=== PATIENT | female | born 1940 | race Caucasian/White ===

== ENCOUNTER 2017-03-14 12:01 | Emergency (ER) | payer MEDICARE ==
--- NOTE | 2017-03-14 12:21 | ED Physician Chart ---
ED Chief Complaint/HPI - Patient Information Chief Complaint:: PAIN IN THE RT PROXIMAL THICH X 1 DAY History of Present Illness:: PAIN IN THE RT PROXIMAL THICH X 1 DAY. PRIOR TO THE PAIN THE PT NOTED A HARDENED VEIN IN THE AREA. THIS AM THE SKIN IN THE AREA BECAME AMNA AND WARM. THE PAIN IS A BURNING WITH A SEVERITY OF 8/10. THERE WAS NO HISTORY OF TRAUMA TO THE AND SHE HAS NEVER EXPERIENCED SIMILAR PAIN IN THE PAST. SHE HAS NO PRIOR HISTORY OF DVT OR PE. SHE HAS NO HX OF RECENT SURGERY OR CANCER. NO HISTORY OF PROLONGED IMMOBILITY OR SWELLING IN THE RT LEG OR FOOT. NO FEVER OR CHILLS OR DIAPHORESIS. 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 Musculoskeletal: No bone or joint pain, No back pain, Muscle pain (IN THE RT PROXIMAL THIGH) Endocrine: No polyuria, No polydipsia Psychiatric: No prior psych history, No anxiety, No suicidal ideation Hematopoietic: No bruising, No lymphadenopathy Allergic/Immuno: No urticaria, No angioedema Neurological: No syncope, No weakness, No paresthesia, No headache, No seizure, No dizziness, No confusion ED Past Medical History - Past Medical History Past Medical History: HTN, DM (DM IS INSULIN DEPENDENT NO HEART DISEASE, CANCER OR COPD ) Social History: Non Smoker, No Alcohol, No Drug Use Surgical History: None Psychiatricy History: None Family Medical History - Family Member Mother Living Status: ED Physical Exam - Physical Examination General/Constitutional: Awake, Well-developed, well-nourished, Alert Other Gen/Cons comments:: MILD TO MODERATE DISTRESS FROM COMPLAINED OF THIGH PAIN. Head: Atraumatic Eyes: Lids, conjuctiva normal, PERRL, EOMI Skin: No ecchymosis, No lymphadenopathy Other Skin comments:: REDNESS AND WARMTH IN RT PROXIMAL INNER THIGH OF APPROXIMATELY 5 X 12 CM'S. ENMT: External ears, nose nl, Nasal exam nl, Oropharynx nl Neck: Nontender, No JVD, No nuchal rigidity, No mass, No stridor Respiratory: Nl effort/Exclusion, Clear to Auscultation, No Wheeze/Rhonchi/Rales Cardio Vascular: RRR, No murmur, gallop, rubs, NL S1 S2 (GOOD PULSES IN ALL 4 EXTREMITIES.) GI: No tenderness/rebounding/guarding, No organomegaly, Nondistended, No mass/ bruits : No CVA tenderness Extremities: No edema Other Extremities comments:: TENDERNESS, WARMTH AND ERYTHEMA. THERE WAS NO PERIPHERAL EDEMA AND NO CALF TENDERNESS IN RT LEG. GOOD CAPILLARY REFILL IN BOTH FEET. Neuro/Psych: Alert/oriented, Normal sensory exam, Normal motor strength, Judgement/insight normal, Mood normal, No focal deficits Misc: Normal back ED Labs/Radiology/EKG Results - Lab Results Results: Laboratory Tests 03/14/17 03/14/17 03/14/17 14:21 14:21 14:21 WBC 10.9 H RBC 4.60 Hgb 14.1 Hct 42.5 MCV 92.5 MCH 30.7 MCHC Differential 33.2 RDW 13.0 Plt Count 262 MPV 8.6 Neutrophils % 71.9 Lymphocytes % 21.2 Monocytes % 2.8 Eosinophils % 3.3 Basophils % 0.8 Sodium 134 L Potassium 4.2 Chloride 103 Carbon Dioxide 25.6 Anion Gap 9.6 BUN 16 Creatinine 0.7 Est GFR ( Amer) TNP Est GFR (Non-Af Amer) TNP BUN/Creatinine Ratio 22.9 Glucose 220 H Hemoglobin A1c % Whole Bld Lactic Acid 1.63 Calcium 9.6 03/14/17 14:21 WBC RBC Hgb Hct MCV MCH MCHC Differential RDW Plt Count MPV Neutrophils % Lymphocytes % Monocytes % Eosinophils % Basophils % Sodium Potassium Chloride Carbon Dioxide Anion Gap BUN Creatinine Est GFR ( Amer) Est GFR (Non-Af Amer) BUN/Creatinine Ratio Glucose Hemoglobin A1c % 9.8 H Whole Bld Lactic Acid Calcium LAB INTERPRETATION: CBC WITH MINIMAL ELEVATION OF WHITE COUNT COULD REFLECT PAIN. NO ANEMIA AND PLATELETS NORMAL. METABOLIC STUDIES SHOW MINIMAL HYPONATREMIA OF NO CLINICAL IMPORTANCE. MODERATE ELEVATION OF SERUM GLUCOSE. NORMAL RENAL FUNCTION. LACTIC ACID WITHIN NORMAL PARAMETERS. ULTRASOUND OF THE RIGHT LOWER EXTREMITY WAS NEGATIVE FOR DVT. ED Assessment - Assessment General Assessment: CASE SUMMARY: THIS 76 YEAR OLD FEMALE PRESENTS WITH PAIN IN THE PROXIMAL RT THIGH WITH ASSOCIATED WARMTH, TENDERNESS AND ERYTHEMA. MY INITIAL CONCERN WAS FOR DVT BUT THE ULTRASOUND OF RT LOWER EXT WAS NEG FOR DVT. WITH THAT INFO, WORK UP FOR CELLULITIS AND SEPSIS WAS BEGUN. BLOOD CULTURES WERE OBTAINED AND THEN ANTIBIOTICS WERE STARTED, 2 GRAMS CEFTRIAXONE AND 1 GRAM VANCOMYCIN. PT'S VITAL SIGNS WERE STABLE. THE LACTIC ACID WAS WITHIN NORMAL PARAMETERS I DISCUSSED THE THE CASE WITH THE PT'S PMD, . AND HE FELT THAT AN OUT PATIENT TRIAL OF PO ANTIBIOTICS WAS ACCEPTABLE. PT WAS DISCHARGED WITH RX FOR CEPHALEXIN 500 MG TO BE TAKEN BID FOR 10 DAYS. THE BOARDER OF THE ERYTHEMA WAS OUTLINED WITH A SHARPIE MARKER. SHE WAS INSTRUCTED TO RETURN TO THE ER OVER THE WEEKEND IF SHE STARTED RUNNING A FEVER, HAS ANY INCREASE PAIN IN HER LEG,OR IF THE REDNESS EXTENDS BEYOND THE MARKED AREA. IF THIS DOESN'T HAPPEN, SHE NEEDS TO SEE ON THURSDAY. HE WILL BE IN HIS OFFICE ON THURSDAY EVEN THOUGH IT IS A HOLIDAY. DISCHARGED IN STABLE CONDITION. MDM DDX FOR PAIN, REDNESS, AND WARMTH IN THE RT LOWER EXTREMITY: NOT DVT BASED ON THE NEGATIVE ULTRA SOUND AND LOW RISK FOR DVT. NOT NECROTIZING FASHCIITIS BASED ON HISTORY AND EXAM. ED Septic Shock - . Is Septic Shock (SBP<90, OR Lactate>4 mmol\L) present?: No ED Reassessment (Disposition) - Reassessment Reassessment Condition:: Improved - Diagnosis Diagnosis:: CELLULITIS OF THE RT PROXIMAL RIGHT LOWER EXTREMITY TAKE THE CEPHALEXIN 4 TIMES A DAY FOR 10 DAYS. USE THE NORCO FOR SEVERE PAIN. DON'T MIX THE NORCO WITH ALCOHOL AND DON'T TAKE IT WITHIN 6 HOURS OF DRIVING OR ACTIVITIES REQUIRING ALERTNESS. RETURN FO THE ER IF YOU DEVELOP FEVER, INCREASED PAIN, OR IF THERE IS SPREAD OF THE REDNESS BEYOND THE OUTLINED AREA. FOLLOW UP WITH DR. WARREN ON THURSDAY. ED Discharge Plan - Patient Disposition Admit/Discharge/Transfer: PT DISCHARGED HOME Condition at Disposition: Stable Prescriptions: Cephalexin [Cephalexin*] 500 mg PO QID #40 tab Hydrocodone/Acetaminophen [[place] 7.5-325 Tablet] 1 tab PO Q6H PRN #10 tab PRN Reason: Pain (Severe) Instructions: Cellulitis, [id number]
[2017-03-14] MEDS ORDERED: Hydrocodone/APAP 10 mg/325 mg Tab PO STA (12:43)
[2017-03-14] MEDS ORDERED: Hydrocodone/APAP 10 mg/325 mg Tab ONE (12:51)
[2017-03-14 14:29] LABS: % BASOPHILS 0.8 % (0.0-2.0); % EOSINOPHILS 3.3 % (0.0-5.0); % LYMPHOCYTES 21.2 % (20.0-50.0); % MONOCYTES 2.8 % (2.0-10.0); % NEUTROPHILS 71.9 % (40.0-80.0); BASOPHILE ABSOLUTE 0.1 Th/cumm (0-0.2); EOSINOPHILE ABSOLUTE 0.4 Th/cmm (0.1-0.4); HEMATOCRIT 42.5 % (41.0-60); HEMOGLOBIN 14.1 gm/dL (12-16); LYMPHOCYTE ABSOLUTE 2.3 Th/cmm (1.5-3.0); MEAN CELL VOLUME 92.5 fl (81-100); MEAN CORPUSCULAR HEMOGLOBIN 30.7 pg (27.0-31.0); MEAN CORPUSCULAR HGB CONC 33.2 pg (28.0-36.0); MEAN PLATELET VOLUME 8.6 fl; MONOCYTE ABSOLUTE 0.3 Th/cmm (0.3-1.0); NEUTROPHILE ABSOLUTE 7.8 Th/cmm (1.8-8.0); PLATELET COUNT 262 Th/cmm (150-400); WHITE BLOOD COUNT 10.9 Th/cmm (4.8-10.8)
[2017-03-14 14:45] LABS: ANION GAP 9.6 (7.0-16.0); BUN - UREA NITROGEN 16 mg/dL (7-25); CALCIUM SERUM 9.6 mg/dL (8.6-10.3); CARBON DIOXIDE 25.6 mEq/L (21.0-31.0); CHLORIDE 103 mEq/L (98-107); CREATININE - SERUM 0.7 mg/dL (0.6-1.2); GLUCOSE 220 mg/dL (70-105); POTASSIUM SERUM 4.2 mEq/L (3.5-5.1); SODIUM SERUM 134 mEq/L (136-145)
--- NOTE | 2017-03-15 09:54 | Diagnostic Imaging Report ---
Left lower extremity Doppler venous ultrasound exam HISTORY: Pain/swelling Sonographic sector images were obtained through the deep venous systems of the left leg. Associated Doppler data was obtained. The exam demonstrates patency of the common femoral, superficial femoral, popliteal, and posterior tibial veins. Specifically, no thrombus is seen. There are normal compressibility and augmentation responses. IMPRESSION: Negative exam for deep vein thrombophlebitis.
[2017-03-15 11:24] LABS: A1C % 9.8 % (4.0-6.0)
== END 2017-03-14 15:40 | disposition home or self-care (01) ==
LOC: ER 12:01
DX: L03.115 Cellulitis of right lower limb (principal); I10 Essential (primary) hypertension; E11.9 Type 2 diabetes mellitus without complications; Z91.041 Radiographic dye allergy status
CPT/HCPCS: 99285; 96365; 93971; 36415; 83605; 85025; 83036; 80048; 87040 ×2; J0690

== ENCOUNTER 2017-07-28 16:14 | Inpatient (IN) | payer MEDICARE ==
--- NOTE | 2017-07-28 16:43 | ED Physician Chart ---
ED Chief Complaint/HPI - Patient Information Date Seen:: 07/28/17 Time Seen:: 16:20 Chief Complaint:: Abscess History of Present Illness:: onset x 3 days of redness and swelling at the right brett-rectal area; no report of trauma, H/As, S/T, neck pain, C/P, SOB, Abd. Pain, A/N/V/D/C, fever, chills, or urinary s/s; pt's last tetanus shot: < 5 years; UTD Allergies:: Allergies Allergy/AdvReac Type Severity Reaction Status Date / Time iodine Allergy Verified 03/14/17 12:24 Vitals:: Vital Signs - 8 hr 07/28/17 16:19 Temp 98.6 F HR 80 RR 18 BP 142/66 O2 Sat % 95 Historian:: Patient Review:: Nurse's Note Reviewed ED Review of Systems - Review of Systems General/Constitutional: No fever, No chills, No weight loss, No weakness, No diaphoresis, No edema, No loss of appetite Skin: Skin lesions, Rash, No bruising Head: No headache, No light-headedness Eyes: No loss of vision, No pain, No diplopia ENT: No earache, No nasal drainage, No sore throat, No tinnitus Neck: No neck pain, No swelling, No thyromegaly, No stiffness, No mass noted Cardio Vascular: No chest pain, No palpitations, No PND, No orthopnea, No edema Pulmonary: No SOB, No cough, No sputum, No wheezing GI: No nausea, No vomiting, No diarrhea, No pain, No melena, No hematochezia, No constipation, No hematemesis G/U: No dysuria, No frequency, No hematuria, No nacturia 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, No abnormal vaginal bleed, No contraction Musculoskeletal: No bone or joint pain, No back pain, No muscle pain Endocrine: No polyuria, No polydipsia Psychiatric: No prior psych history, No depression, No anxiety, No suicidal ideation, No homicidal ideation, No auditory hallucination, No visual hallucination Hematopoietic: No bruising, No lymphadenopathy Allergic/Immuno: No urticaria, No angioedema Neurological: No syncope, No focal symptoms, No weakness, No paresthesia, No headache, No seizure, No dizziness, No confusion, No vertigo ED Past Medical History - Past Medical History Obtainable: Yes Past Medical History: HTN, DM, Dyslipidemia, PUD/GERD Family History: Diabetes Melitus, HTN Social History: Non Smoker, No Alcohol, No Drug Use, Surgical History: Cholecystectomy, Hernia Psychiatricy History: None Medication: Reviewed Family Medical History - Family Member Mother Living Status: ED Physical Exam - Physical Examination General/Constitutional: Awake, Well-developed, well-nourished, Alert, No distress, GCS 15, Non-toxic appearing, Ambulatory Head: Atraumatic Eyes: Lids, conjuctiva normal, PERRL, EOMI Skin: Nl inspection, No rash, No skin lesions, No ecchymosis, Well hydrated, No lymphadenopathy Other Skin comments:: + Right Brett-Rectal Abscess ENMT: External ears, nose nl, TM canals nl, Nasal exam nl, Lips, teeth, gums nl , Oropharynx nl, Tonsils nl Neck: Nontender, Full ROM w/o pain, No JVD, No nuchal rigidity, No bruit, No mass, No stridor Respiratory: Nl effort/Exclusion, Clear to Auscultation, No Wheeze/Rhonchi/Rales Cardio Vascular: RRR, No murmur, gallop, rubs, NL S1 S2, Carotid/Femoral/Distal pulses equal bilaterally GI: No tenderness/rebounding/guarding, No organomegaly, No hernia, Normal BS's, Nondistended, No mass/bruits, No McBurney tenderness Other GI comments:: no pulsatile masses; + Right Brett-rectal abscess : No CVA tenderness Extremities: No tenderness or effusion, Full ROM, normal strength in all extremities, No edema, Normal digits & nails Neuro/Psych: Alert/oriented, DTR's symmetric, Normal sensory exam, Normal motor strength, Judgement/insight normal, Mood normal, Normal gait, No focal deficits Misc: Normal back, No paraspinal tenderness ED Labs/Radiology/EKG Results - EKG Interpretations EKG Time:: 16:48 Rate & Rhythm: 78; NSR Comments:: non-specific st-t changes ED Septic Shock - . Is Septic Shock (SBP<90, OR Lactate>4 mmol\L) present?: No - <6hrs of presentation: Vital Signs: Vital Signs - 8 hr 07/28/17 16:19 Temp 98.6 F HR 80 RR 18 BP 142/66 O2 Sat % 95 ED Reassessment (Disposition) - Reassessment Reassessment Condition:: Improved - Diagnosis Diagnosis:: Brett-Rectal Abscess; Cellulitis; Sepsis - Aftercare/Follow up Instructions Aftercare/Follow-Up Instructions:: Counseled pt regarding lab results/diagnosis & need follow up, Counseled pt & family regarding lab results/diagnosis & need follow up - Patient Disposition Discharge/Transfer:: Acute Care w/in this hosp Accepting Physician:: Dr. Butler Time Called:: 1700 Time Responded:: 17:00 Admitted to:: Med/Surg Spoke to:: Dr. Butler Admitting Medical Physician:: Dr. Butler Condition at Disposition:: Stable, Improved
[2017-07-28] MEDS ORDERED: cefTRIAXone 1 GM in Sodium Chloride 0.9% 50 ML IV ONE (16:46)
[2017-07-28 17:07] LABS: % BASOPHILS 0.7 % (0.0-2.0); % EOSINOPHILS 6.1 % (0.0-5.0); % MONOCYTES 6.4 % (2.0-10.0); % NEUTROPHILS 67.8 % (40.0-80.0); BASOPHILE ABSOLUTE 0.1 Th/cumm (0-0.2); EOSINOPHILE ABSOLUTE 0.6 Th/cmm (0.1-0.4); HEMATOCRIT 33.7 % (41.0-60); HEMOGLOBIN 11.3 gm/dL (12-16); LYMPHOCYTE ABSOLUTE 1.8 Th/cmm (1.5-3.0); MEAN CELL VOLUME 91.5 fl (81-100); MEAN CORPUSCULAR HEMOGLOBIN 30.8 pg (27.0-31.0); MEAN CORPUSCULAR HGB CONC 33.7 pg (28.0-36.0); MEAN PLATELET VOLUME 8.4 fl; MONOCYTE ABSOLUTE 0.6 Th/cmm (0.3-1.0); NEUTROPHILE ABSOLUTE 6.6 Th/cmm (1.8-8.0); PLATELET COUNT 227 Th/cmm (150-400); RED BLOOD COUNT 3.69 Mil/cmm (3.80-5.20); RED CELL DISTRIBUTION WIDTH 12.4 % (11.5-20.0); WHITE BLOOD COUNT 9.7 Th/cmm (4.8-10.8)
[2017-07-28 17:15] LABS: INR 0.87 (0.5-1.4); PROTHROMBIN TIME (TEST) 8.9 SECONDS (9.5-11.5)
[2017-07-28 17:18] LABS: ALB/GLOB RATIO 1.4 (1.0-1.8); ALKALINE PHOSPHATASE 159 U/L (34-104); ANION GAP 10.7 (7.0-16.0); BILIRUBIN,TOTAL 0.5 mg/dL (0.3-1.0); BUN - UREA NITROGEN 14 mg/dL (7-25); CALCIUM SERUM 9.2 mg/dL (8.6-10.3); CARBON DIOXIDE 26.6 mEq/L (21.0-31.0); CHLORIDE 100 mEq/L (98-107); CREATININE - SERUM 0.7 mg/dL (0.6-1.2); CREATININE KINASE 64 U/L (30-223); GLUCOSE 290 mg/dL (70-105); POTASSIUM SERUM 4.3 mEq/L (3.5-5.1); SGOT 47 U/L (13-39); SGPT/ALT 122 U/L (7-52); SODIUM SERUM 133 mEq/L (136-145); TOTAL PROTEIN,SERUM 6.9 gm/dL (6.0-8.3)
[2017-07-28 18:08] LABS: URINE MICROSCOPIC INDICATED? YES; URINE SOURCE MIDSTREAM
[2017-07-28] MEDS ORDERED: Hydrocodone/APAP 5mg/325mg Tab PO ONE (18:08)
[2017-07-28] MEDS ORDERED: Hydrocodone/APAP 5mg/325mg Tab ONE (18:24)
[2017-07-28 18:27] LABS: URINE COLOR DARK ORANGE
[2017-07-28 18:28] LABS: URINE CLARITY SLIGHT CLOUDY (CLEAR)
[2017-07-28 18:29] LABS: URINE BILIRUBIN NEGATIVE (NEGATIVE); URINE BLOOD NEGATIVE (NEGATIVE); URINE GLUCOSE (UA) 250 mg/dL (NEGATIVE); URINE KETONE NEGATIVE (NEGATIVE)
[2017-07-28 18:30] LABS: URINE LEUKOCYTE ESTERASE MODERATE (NEGATIVE); URINE NITRATE POSITIVE (NEGATIVE); URINE PROTEIN 30 mg/dL (NEGATIVE)
[2017-07-28 18:31] LABS: URINE RBC 0-2 /hpf (0-5)
[2017-07-28 18:32] LABS: URINE BACTERIA MANY /hpf (NONE SEEN); URINE EPITHELIAL CELLS OCCASIONAL /lpf (FEW); URINE WBC 50-100 /hpf (0-5)
[2017-07-29] MEDS ORDERED: Pneumococcal Vaccine 0.5 mL Vial IM ONE (00:15)
[2017-07-29] MEDS: Morphine Sulfate 4 mg/mL 1mL Syr IVP PRN ×2 (00:53→08:13)
[2017-07-29] MEDS: D5-0.45NS 1,000 ML IV SCH ×2 (00:55→17:13)
[2017-07-29 05:36] VITALS: BP 156/55
[2017-07-29 06:06] LABS: % BASOPHILS 0.5 % (0.0-2.0); % EOSINOPHILS 6.9 % (0.0-5.0); % LYMPHOCYTES 16.2 % (20.0-50.0); % MONOCYTES 7.4 % (2.0-10.0); EOSINOPHILE ABSOLUTE 0.6 Th/cmm (0.1-0.4); HEMATOCRIT 34.2 % (41.0-60); HEMOGLOBIN 11.6 gm/dL (12-16); LYMPHOCYTE ABSOLUTE 1.5 Th/cmm (1.5-3.0); MEAN CELL VOLUME 91.8 fl (81-100); MEAN CORPUSCULAR HGB CONC 33.7 pg (28.0-36.0); MEAN PLATELET VOLUME 8.3 fl; MONOCYTE ABSOLUTE 0.7 Th/cmm (0.3-1.0); NEUTROPHILE ABSOLUTE 6.6 Th/cmm (1.8-8.0); PLATELET COUNT 229 Th/cmm (150-400); RED BLOOD COUNT 3.73 Mil/cmm (3.80-5.20); RED CELL DISTRIBUTION WIDTH 12.5 % (11.5-20.0); WHITE BLOOD COUNT 9.4 Th/cmm (4.8-10.8)
[2017-07-29 06:31] LABS: ALB/GLOB RATIO 1.3 (1.0-1.8); ALBUMIN 3.6 gm/dL (3.7-5.3); ALKALINE PHOSPHATASE 145 U/L (34-104); ANION GAP 9.5 (7.0-16.0); BILIRUBIN,TOTAL 0.6 mg/dL (0.3-1.0); BUN - UREA NITROGEN 11 mg/dL (7-25); CALCIUM SERUM 9.1 mg/dL (8.6-10.3); CARBON DIOXIDE 28.7 mEq/L (21.0-31.0); CHLORIDE 104 mEq/L (98-107); CREATININE - SERUM 0.7 mg/dL (0.6-1.2); GLUCOSE 193 mg/dL (70-105); POTASSIUM SERUM 4.2 mEq/L (3.5-5.1); SGOT 34 U/L (13-39); SGPT/ALT 96 U/L (7-52); SODIUM SERUM 138 mEq/L (136-145); TOTAL PROTEIN,SERUM 6.4 gm/dL (6.0-8.3)
--- NOTE | 2017-07-29 11:29 | General Progress Note ---
Subjective - Review of Systems Service Date: 07/29/17 Events since last encounter: pain and swelling for 3 days, DM Plan: sigmoidoscopy, I and D in AM Objective - Results Result Diagrams: 07/29/17 05:55 07/29/17 05:55 Recent Labs: Laboratory Last Values WBC 9.4 Th/cmm (4.8-10.8) 07/29/17 05:55 RBC 3.73 Mil/cmm (3.80-5.20) L 07/29/17 05:55 Hgb 11.6 gm/dL (12-16) L 07/29/17 05:55 Hct 34.2 % (41.0-60) L 07/29/17 05:55 MCV 91.8 fl (81-100) 07/29/17 05:55 MCH 31.0 pg (27.0-31.0) 07/29/17 05:55 MCHC Differential 33.7 pg (28.0-36.0) 07/29/17 05:55 RDW 12.5 % (11.5-20.0) 07/29/17 05:55 Plt Count 229 Th/cmm (150-400) 07/29/17 05:55 MPV 8.3 fl 07/29/17 05:55 Neutrophils % 69.0 % (40.0-80.0) 07/29/17 05:55 Lymphocytes % 16.2 % (20.0-50.0) L 07/29/17 05:55 Monocytes % 7.4 % (2.0-10.0) 07/29/17 05:55 Eosinophils % 6.9 % (0.0-5.0) H 07/29/17 05:55 Basophils % 0.5 % (0.0-2.0) 07/29/17 05:55 PT 8.9 SECONDS (9.5-11.5) L 07/28/17 17:00 INR 0.87 (0.5-1.4) 07/28/17 17:00 PTT (Actin FS) 21.9 SECONDS (26.0-38.0) L 07/28/17 17:00 Sodium 138 mEq/L (136-145) 07/29/17 05:55 Potassium 4.2 mEq/L (3.5-5.1) 07/29/17 05:55 Chloride 104 mEq/L (98-107) 07/29/17 05:55 Carbon Dioxide 28.7 mEq/L (21.0-31.0) 07/29/17 05:55 Anion Gap 9.5 (7.0-16.0) 07/29/17 05:55 BUN 11 mg/dL (7-25) 07/29/17 05:55 Creatinine 0.7 mg/dL (0.6-1.2) 07/29/17 05:55 Est GFR ( Amer) TNP 07/29/17 05:55 Est GFR (Non-Af Amer) TNP 07/29/17 05:55 BUN/Creatinine Ratio 15.7 07/29/17 05:55 Glucose 193 mg/dL (70-105) H 07/29/17 05:55 Whole Bld Lactic Acid 1.06 mmol/L (0.60-1.99) 07/28/17 17:00 Calcium 9.1 mg/dL (8.6-10.3) 07/29/17 05:55 Total Bilirubin 0.6 mg/dL (0.3-1.0) 07/29/17 05:55 AST 34 U/L (13-39) 07/29/17 05:55 ALT 96 U/L (7-52) H 07/29/17 05:55 Alkaline Phosphatase 145 U/L (34-104) H 07/29/17 05:55 Creatine Kinase 64 U/L (30-223) 07/28/17 17:00 Troponin I 0.01 ng/mL (0.01-0.05) 07/28/17 17:00 Total Protein 6.4 gm/dL (6.0-8.3) 07/29/17 05:55 Albumin 3.6 gm/dL (3.7-5.3) L 07/29/17 05:55 Globulin 2.8 gm/dL 07/29/17 05:55 Albumin/Globulin Ratio 1.3 (1.0-1.8) 07/29/17 05:55 Urine Source [place]STREAM 07/28/17 17:50 Urine Color DARK ORANGE 07/28/17 17:50 Urine Clarity SLIGHT CLOUDY (CLEAR) H 07/28/17 17:50 Urine pH 5.0 (4.6 - 8.0) 07/28/17 17:50 Ur Specific [place] < 1.005 (1.005-1.030) L 07/28/17 17:50 Urine Protein 30 mg/dL (NEGATIVE) H 07/28/17 17:50 Urine Glucose (UA) 250 mg/dL (NEGATIVE) H 07/28/17 17:50 Urine Ketones NEGATIVE mg/dL (NEGATIVE) 07/28/17 17:50 Urine Blood NEGATIVE (NEGATIVE) 07/28/17 17:50 Urine Nitrate POSITIVE (NEGATIVE) H 07/28/17 17:50 Urine Bilirubin NEGATIVE (NEGATIVE) 07/28/17 17:50 Urine Urobilinogen 2.0 E.U./dL (0.2 - 1.0) 07/28/17 17:50 Ur Leukocyte Esterase MODERATE (NEGATIVE) H 07/28/17 17:50 Urine RBC 0-2 /hpf (0-5) 07/28/17 17:50 Urine WBC 50-100 /hpf (0-5) H 07/28/17 17:50 Ur Epithelial Cells OCCASIONAL /lpf (FEW) 07/28/17 17:50 Urine Bacteria MANY /hpf (NONE SEEN) H 07/28/17 17:50 - Physical Exam Vitals and I&O: Vital Signs Temp 97.4 F 07/29/17 07:49 Pulse 84 07/29/17 10:22 Resp 18 07/29/17 07:49 BP 142/51 07/29/17 10:22 Pulse Ox 95 07/29/17 07:49 Intake & Output 07/28/17 07/29/17 07/29/17 18:59 06:59 18:59 Intake Total 50 Output Total 400 Balance 50 -400 Weight (lbs) 68.039 kg 68.039 kg Intake: Intake, IV Amount 50 cefTRIAXone 1 gm In 50 Sodium Chloride 0.9% 50 ml @ 100 mls/hr IV X1 ONE Rx#:[id number] Output: Urine 400 Stool 0 Other: Weight Source Patient stated Bedscale Active Medications: Current Medications Acetaminophen/Hydrocodone Bitart ([place] 5mg/325mg) 1 tab PO Q6H PRN PRN Reason: Pain (Severe) Cephalexin Monohydrate (Keflex) 500 mg PO QID GLADIS Stop: 09/27/17 09:59 Last Admin: 07/29/17 10:22 Dose: 500 mg Dextrose/Sodium Chloride (D5-0.45ns) 1,000 mls @ 75 mls/hr IV .[id number] [facility] Stop: 09/27/17 00:29 Last Admin: 07/29/17 00:55 Dose: 75 mls/hr Piperacillin Sod/Tazobactam (Sod 3.375 gm/ Dextrose) 50 mls @ 100 mls/hr IV Q6H [facility] Stop: 09/27/17 17:59 Vancomycin HCl 1.25 gm/ Sodium (Chloride) 250 mls @ 165 mls/hr IV Q24HR@0900 [facility] Stop: 09/27/17 09:59 Last Admin: 07/29/17 10:53 Dose: 165 mls/hr Insulin Aspart (Novolog Insulin Sliding Scale) 0 units SUBQ ACHS [facility]; Protocol Stop: 09/27/17 11:29 Lisinopril (Zestril) 40 mg PO DAILY [facility] Stop: 09/27/17 09:59 Last Admin: 07/29/17 10:22 Dose: 40 mg Miscellaneous (Vancomycin Iv Per Pharmacy) 1 ea MC PRN PRN PRN Reason: PROTOCOL Stop: 09/27/17 08:24 Miscellaneous (Zosyn Iv Per Pharmacy) 1 ea PRN PRN PRN Reason: PROTOCOL Stop: 09/27/17 08:25 Morphine Sulfate (Morphine) 2 mg IVP Q4HR PRN PRN Reason: Pain (Moderate) Stop: 09/27/17 00:22 Last Admin: 07/29/17 08:13 Dose: 2 mg Simvastatin (Zocor) 20 mg PO HS [facility]; Protocol Stop: 09/27/17 20:59
[2017-07-29] MEDS: INSULIN ASPART SLIDING SCALE 100 UNITS/ML UNIT SUBQ SCH ×3 (12:43→21:43)
[2017-07-29] MEDS: Hydrocodone/APAP 5mg/325mg Tab PO PRN ×2 (12:46→21:33)
--- NOTE | 2017-07-29 14:02 | Consultation ---
Consult Note - Consult Note Service Date: 07/29/17 Referring Physician: Glo Butler Consult Note: PHYSICIAN Consultation Note: Date of Admission: 07/28/17 Purpose of Consultation: Perirectal abscess. Chief Complaint: Patient DALE HUGHES was admitted to [facility] Surgical Unit I with PERICTAL ABSCESS. History of Present Illness: 76-year-old female with no significant past medical history of swelling and redness of the right gluteal area, medially, and perirectal area over last 7 days. For last 3 days it became painful and swollen. Patient denies any fever or chills. On initial evaluation, her temperature 97.3F and WBC count was 9700. Vancomycin and Zosyn was started. ID consult was called for further antibiotic management. Past Medical History: Nonsignificant. Diagnoses SEPSIS, UNSPECIFIED ORGANISM (07/28/17) RECTAL ABSCESS (07/28/17) CUTANEOUS ABSCESS, UNSPECIFIED (07/28/17) CELLULITIS, UNSPECIFIED (07/28/17) Allergies Allergy/AdvReac Type Severity Reaction Status Date / Time iodine Allergy Verified 03/14/17 12:24 latex Allergy Verified 07/29/17 05:34 Vital Signs Temp 97.3 F 07/29/17 11:56 Pulse 85 07/29/17 11:56 Resp 18 07/29/17 11:56 BP 127/68 07/29/17 11:56 Pulse Ox 96 07/29/17 11:56 Intake & Output 07/28/17 07/29/17 07/29/17 18:59 06:59 18:59 Intake Total 50 Output Total 400 Balance 50 -400 Weight (lbs) 68.039 kg 68.039 kg Intake: Intake, IV Amount 50 cefTRIAXone 1 gm In 50 Sodium Chloride 0.9% 50 ml @ 100 mls/hr IV X1 ONE Rx#:[id number] Output: Urine 400 Stool 0 Other: Weight [facility] Results - last 24 hr 07/28/17 07/28/17 07/28/17 17:00 17:00 17:00 WBC 9.7 RBC 3.69 L Hgb 11.3 L Hct 33.7 L MCV 91.5 MCH 30.8 MCHC Differential 33.7 RDW 12.4 Plt Count 227 MPV 8.4 Neutrophils % 67.8 Lymphocytes % 19.0 L Monocytes % 6.4 Eosinophils % 6.1 H Basophils % 0.7 PT 8.9 L INR 0.87 PTT (Actin FS) 21.9 L Sodium 133 L Potassium 4.3 Chloride 100 Carbon Dioxide 26.6 Anion Gap 10.7 BUN 14 Creatinine 0.7 Est GFR ( Amer) TNP Est GFR (Non-Af Amer) TNP BUN/Creatinine Ratio 20.0 Glucose 290 H POC Glucose Whole Bld Lactic Acid Calcium 9.2 Total Bilirubin 0.5 AST 47 H ALT 122 H Alkaline Phosphatase 159 H Creatine Kinase 64 Troponin I Total Protein 6.9 Albumin 4.0 Globulin 2.9 Albumin/Globulin Ratio 1.4 Urine Source Urine Color Urine Clarity Urine pH Ur Specific [place] Urine Protein Urine Glucose (UA) Urine Ketones Urine Blood Urine Nitrate Urine Bilirubin Urine Urobilinogen Ur Leukocyte Esterase Urine RBC Urine WBC Ur Epithelial Cells Urine Bacteria 07/28/17 07/28/17 07/28/17 17:00 17:00 17:50 WBC RBC Hgb Hct MCV MCH MCHC Differential RDW Plt Count MPV Neutrophils % Lymphocytes % Monocytes % Eosinophils % Basophils % PT INR PTT (Actin FS) Sodium Potassium Chloride Carbon Dioxide Anion Gap BUN Creatinine Est GFR ( Amer) Est GFR (Non-Af Amer) BUN/Creatinine Ratio Glucose POC Glucose Whole Bld Lactic Acid Cancelled 1.06 Calcium Total Bilirubin AST ALT Alkaline Phosphatase Creatine Kinase Troponin I 0.01 Total Protein Albumin Globulin Albumin/Globulin Ratio Urine Source [place] Urine Color DARK ORANGE Urine Clarity SLIGHT CLOUDY H Urine pH 5.0 Ur Specific [place] < 1.005 L Urine Protein 30 H Urine Glucose (UA) 250 H Urine Ketones NEGATIVE Urine Blood NEGATIVE Urine Nitrate POSITIVE H Urine Bilirubin NEGATIVE Urine Urobilinogen 2.0 Ur Leukocyte Esterase MODERATE H Urine RBC 0-2 Urine WBC 50-100 H Ur Epithelial Cells OCCASIONAL Urine Bacteria MANY H 07/29/17 07/29/17 07/29/17 05:55 05:55 11:59 WBC 9.4 RBC 3.73 L Hgb 11.6 L Hct 34.2 L MCV 91.8 MCH 31.0 MCHC Differential 33.7 RDW 12.5 Plt Count 229 MPV 8.3 Neutrophils % 69.0 Lymphocytes % 16.2 L Monocytes % 7.4 Eosinophils % 6.9 H Basophils % 0.5 PT INR PTT (Actin FS) Sodium 138 Potassium 4.2 Chloride 104 Carbon Dioxide 28.7 Anion Gap 9.5 BUN 11 Creatinine 0.7 Est GFR ( Amer) TNP Est GFR (Non-Af Amer) TNP BUN/Creatinine Ratio 15.7 Glucose 193 H POC Glucose 243 H Whole Bld Lactic Acid Calcium 9.1 Total Bilirubin 0.6 AST 34 ALT 96 H Alkaline Phosphatase 145 H Creatine Kinase Troponin I Total Protein 6.4 Albumin 3.6 L Globulin 2.8 Albumin/Globulin Ratio 1.3 Urine Source Urine Color Urine Clarity Urine pH Ur Specific [place] Urine Protein Urine Glucose (UA) Urine Ketones Urine Blood Urine Nitrate Urine Bilirubin Urine Urobilinogen Ur Leukocyte Esterase Urine RBC Urine WBC Ur Epithelial Cells Urine Bacteria Home Medication Medication Instructions Recorded Type Cephalexin [Cephalexin*] 500 mg PO QID #40 tab 03/14/17 Rx Hydrocodone/Acetaminophen [[place] 1 tab PO Q6H PRN #10 tab 03/14/17 Rx 7.5-325 Tablet] Lisinopril 40 mg PO DAILY 03/14/17 History Simvastatin [Zocor] 20 mg PO HS 03/14/17 History metFORMIN [Glucophage] 500 mg PO BID 03/14/17 History Current Medications Generic Name Dose Route Start Last Admin Trade Name Freq PRN Reason Stop Dose Admin Acetaminophen/Hydrocodone Bitart 1 tab 07/29/17 09:48 07/29/17 12:46 [place] 5mg/325mg PO 1 tab Q6H PRN Administration Pain (Severe) Cephalexin Monohydrate 500 mg 07/29/17 10:00 07/29/17 12:46 Keflex PO 09/27/17 09:59 500 mg QID GLADIS Administration Dextrose/Sodium Chloride 1,000 mls @ 75 mls/hr 07/29/17 00:30 07/29/17 00:55 D5-0.45ns IV 09/27/17 00:29 75 mls/hr .[id number] GLADIS Administration Piperacillin Sod/Tazobactam 50 mls @ 100 mls/hr 07/29/17 18:00 Sod 3.375 gm/ Dextrose IV 09/27/17 17:59 Q6H GLADIS Vancomycin HCl 1.25 gm/ Sodium 250 mls @ 165 mls/hr 07/29/17 10:00 07/29/17 10:53 Chloride IV 09/27/17 09:59 165 mls/hr Q24HR@0900 GLADIS Administration Insulin Aspart 0 units 07/29/17 11:30 07/29/17 12:43 Novolog Insulin Sliding Scale SUBQ 09/27/17 11:29 4 units ACHS GLADIS Administration Protocol Lisinopril 40 mg 07/29/17 10:00 07/29/17 10:22 Zestril PO 09/27/17 09:59 40 mg DAILY GLADIS Administration Miscellaneous 1 07/29/17 08:25 Vancomycin Iv Per Pharmacy 09/27/17 08:24 PRN PRN PROTOCOL Miscellaneous 1 07/29/17 08:26 Zosyn Iv Per Pharmacy 09/27/17 08:25 PRN PRN PROTOCOL Morphine Sulfate 2 mg 07/29/17 00:23 07/29/17 08:13 Morphine IVP 09/27/17 00:22 2 mg Q4HR PRN Administration Pain (Moderate) Simvastatin 20 mg 07/29/17 21:00 Zocor PO 09/27/17 20:59 HS GLADIS Protocol Review of Systems: A 12 point ROS was reviewed with the pertinent positive and negatives noted in the HPI. Family history Not significant. Social History Smoking Status Former smoker Drug Use No Alcohol Use No Physical Exam: General: Comfortable, not in acute distress. Well-nourished well-developed. HEENT: Head: Normocytic, atraumatic. Oral cavity: Moist, pink tongue. Neck: Supple, no JVD. No use of accessory neck muscles. Cardio: S1 and S2 within normal limits regular rhythm no murmur no gallop. Respiratory: Vesicular breath sound. No Wheezing. No Crackles. Abdominal: Soft, Nontender Nondistended Bowel Sounds Present. Perirectal area: In the right gluteal area, there is a large pustule with surrounding erythema Genital/Urinary: Deferred. Extremities: No cyanosis, no clubbing, no edema. Neurological: Alert, awake, oriented 3. Assessment: 1. Right perirectal abscess. Plan: Continue vancomycin and Zosyn. Depending on the culture report will define final antibiotic therapy. Thank you, Dr. Butler, for involving me in taking care of this patient. Wyatt, Delio Ojeda M.D. [id number]
--- NOTE | 2017-07-29 16:37 | History & Physical ---
ADMIT DATE: 07/28/2017 CHIEF COMPLAINT: A 76-year-old female admitted for a perirectal swelling and perirectal abscess. HISTORY OF PRESENT ILLNESS: A 76-year-old female came to the Emergency Room complaining of pain to the gluteal area, redness, swelling and was diagnosed to have perirectal abscess, was given vancomycin and Zosyn. ID consult was called and also surgical consult, Dr. Tillman. PAST MEDICAL HISTORY: Not significant. REVIEW OF SYSTEMS: The patient's system review other than for pain, everything was negative. PHYSICAL EXAMINATION: HEAD: Normal. ENT: Normal. NECK: Supple, nontender. LUNGS: Clear. CARDIOVASCULAR SYSTEM: S1, S2 heard. ABDOMEN: Soft. Bowel sounds are heard. CENTRAL NERVOUS SYSTEM: Grossly normal. SKIN: Perirectal area tenderness and erythema was noted. DIAGNOSIS: Right perirectal abscess. PLAN: The patient is being continued on vancomycin, Zosyn and Dr. Tillman to see the patient and I will follow the patient. [facility]# [id number]
[2017-07-29 20:00] LABS: A1C % 9.1 % (4.0-6.0)
[2017-07-29] MEDS ORDERED: Magnesium Citrate 1.75 GM/300 mL Bottle PO ONE (21:00)
[2017-07-30] MEDS: Morphine Sulfate 4 mg/mL 1mL Syr IVP PRN (03:40)
[2017-07-30] MEDS ORDERED: Metoclopramide 5 mg/mL 2mL Vial ONE (07:51)
[2017-07-30] MEDS ORDERED: Labetalol 5 mg/mL 20 mL Vial ONE (07:51)
[2017-07-30] MEDS ORDERED: [UNRECOGNIZED DRUG - REMARK] IV ONE (07:51)
[2017-07-30] MEDS: INSULIN ASPART SLIDING SCALE 100 UNITS/ML UNIT SUBQ SCH ×4 (08:31→21:00)
--- NOTE | 2017-07-30 08:35 | Consultation ---
DATE OF CONSULTATION: 07/29/2017 SURGICAL CONSULTATION REFERRING PHYSICIAN: Dr. Butler. REASON FOR CONSULTATION: Right perirectal abscess. Thank you for referring this patient to me. HISTORY OF PRESENT ILLNESS: This is a 76-year-old female with known history of diabetes mellitus type 1, taking insulin now. It appears that she has not had this diabetes under good control. Admission blood sugar of 290 and A1c of 9.1. She started complaining of swelling and pain in the right perianal area and 3 days ago this became worse. She was admitted through ER for this condition. PAST MEDICAL HISTORY: Otherwise unremarkable. LABORATORY STUDIES: On admission, WBC was normal, hemoglobin 11.3. Chemistry showed blood sugar of 290 with hemoglobin A1c of 9.1. There was some elevation of AST to 47, ALT to 122, and alkaline phosphatase to 159. PHYSICAL EXAMINATION: There is swelling and redness at 7 o'clock location of the anal opening. This very tender to the touch. IMPRESSION: 1. Right perirectal abscess. 2. Poor diabetes control. PLAN: Would recommend a sigmoidoscopy to determine any fistula. Incision and drainage will be done and if necessary placement of seton. JOB# [id number]
[2017-07-30] MEDS ORDERED: Morphine Sulfate 2 mg/mL 1mL Syr ONE (09:13)
--- NOTE | 2017-07-30 10:01 | Operative Report ---
DATE OF SURGERY: 07/30/2017 PREOPERATIVE DIAGNOSES: 1. Right perirectal abscess. 2. Poor blood sugar control. POSTOPERATIVE DIAGNOSIS: Anal cutaneous fistula. OPERATION DONE: 1. Sigmoidoscopy. 2. Incision and drainage of abscess. 3. Placement of Seton. SURGEON: Hoang Tillman MD. ANESTHESIA: General. ANESTHESIOLOGIST: Mark Anthony. ESTIMATED BLOOD LOSS: None. Informed consent discussed with the patient regarding the need for sigmoidoscopy to determine any internal connection that might be the source of the fistula and abscess formation. A drainage of abscess will be done and likely postoperative treatment including antibiotics and hot Sitz bath. PROCEDURE: The patient was given general anesthesia. She was placed in dorsal lithotomy position. Sigmoidoscopy was done with the rigid scope and this examination went up to 15 cm from the anal verge. No pathology was found and there was suspicious area at 7 o'clock that might be a source for the fistula. The patient was then prepped with ChloraPrep and draped. Incision was made at the dome of the abscess and thick purulent material was aspirated and cultures were taken. A probe was then used to check for any fistula and there appeared to be 1, which was treated with placement of a Seton of double 0 silk suture. The abscess cavity was then packed with iodoform gauze. Postoperative treatment will be ordered. Thank you Dr. Tillman. JOB# [id number]
--- NOTE | 2017-07-30 10:15 | Infectious Disease Prog Note ---
Infectious Disease Subjective - Review of Systems Service Date: 07/30/17 Subjective: I and D of the right jeanette-rectal abscess performed by Dr Tillman today. Infectious Disease Objective - Results Result Diagrams: 07/31/17 05:50 07/31/17 05:50 Recent Labs: Laboratory Last Values WBC 9.4 Th/cmm (4.8-10.8) 07/29/17 05:55 RBC 3.73 Mil/cmm (3.80-5.20) L 07/29/17 05:55 Hgb 11.6 gm/dL (12-16) L 07/29/17 05:55 Hct 34.2 % (41.0-60) L 07/29/17 05:55 MCV 91.8 fl (81-100) 07/29/17 05:55 MCH 31.0 pg (27.0-31.0) 07/29/17 05:55 MCHC Differential 33.7 pg (28.0-36.0) 07/29/17 05:55 RDW 12.5 % (11.5-20.0) 07/29/17 05:55 Plt Count 229 Th/cmm (150-400) 07/29/17 05:55 MPV 8.3 fl 07/29/17 05:55 Neutrophils % 69.0 % (40.0-80.0) 07/29/17 05:55 Lymphocytes % 16.2 % (20.0-50.0) L 07/29/17 05:55 Monocytes % 7.4 % (2.0-10.0) 07/29/17 05:55 Eosinophils % 6.9 % (0.0-5.0) H 07/29/17 05:55 Basophils % 0.5 % (0.0-2.0) 07/29/17 05:55 PT 8.9 SECONDS (9.5-11.5) L 07/28/17 17:00 INR 0.87 (0.5-1.4) 07/28/17 17:00 PTT (Actin FS) 21.9 SECONDS (26.0-38.0) L 07/28/17 17:00 Sodium 138 mEq/L (136-145) 07/29/17 05:55 Potassium 4.2 mEq/L (3.5-5.1) 07/29/17 05:55 Chloride 104 mEq/L (98-107) 07/29/17 05:55 Carbon Dioxide 28.7 mEq/L (21.0-31.0) 07/29/17 05:55 Anion Gap 9.5 (7.0-16.0) 07/29/17 05:55 BUN 11 mg/dL (7-25) 07/29/17 05:55 Creatinine 0.7 mg/dL (0.6-1.2) 07/29/17 05:55 Est GFR ( Amer) TNP 07/29/17 05:55 Est GFR (Non-Af Amer) TNP 07/29/17 05:55 BUN/Creatinine Ratio 15.7 07/29/17 05:55 Glucose 193 mg/dL (70-105) H 07/29/17 05:55 POC Glucose 288 MG/DL (70 - 105) H 07/30/17 09:10 Hemoglobin A1c % 9.1 % (4.0-6.0) H 07/28/17 17:00 Whole Bld Lactic Acid 1.06 mmol/L (0.60-1.99) 07/28/17 17:00 Calcium 9.1 mg/dL (8.6-10.3) 07/29/17 05:55 Total Bilirubin 0.6 mg/dL (0.3-1.0) 07/29/17 05:55 AST 34 U/L (13-39) 07/29/17 05:55 ALT 96 U/L (7-52) H 07/29/17 05:55 Alkaline Phosphatase 145 U/L (34-104) H 07/29/17 05:55 Creatine Kinase 64 U/L (30-223) 07/28/17 17:00 Troponin I 0.01 ng/mL (0.01-0.05) 07/28/17 17:00 Total Protein 6.4 gm/dL (6.0-8.3) 07/29/17 05:55 Albumin 3.6 gm/dL (3.7-5.3) L 07/29/17 05:55 Globulin 2.8 gm/dL 07/29/17 05:55 Albumin/Globulin Ratio 1.3 (1.0-1.8) 07/29/17 05:55 Urine Source MIDSTREAM 07/28/17 17:50 Urine Color DARK ORANGE 07/28/17 17:50 Urine Clarity SLIGHT CLOUDY (CLEAR) H 07/28/17 17:50 Urine pH 5.0 (4.6 - 8.0) 07/28/17 17:50 Ur Specific [place] < 1.005 (1.005-1.030) L 07/28/17 17:50 Urine Protein 30 mg/dL (NEGATIVE) H 07/28/17 17:50 Urine Glucose (UA) 250 mg/dL (NEGATIVE) H 07/28/17 17:50 Urine Ketones NEGATIVE mg/dL (NEGATIVE) 07/28/17 17:50 Urine Blood NEGATIVE (NEGATIVE) 07/28/17 17:50 Urine Nitrate POSITIVE (NEGATIVE) H 07/28/17 17:50 Urine Bilirubin NEGATIVE (NEGATIVE) 07/28/17 17:50 Urine Urobilinogen 2.0 E.U./dL (0.2 - 1.0) 07/28/17 17:50 Ur Leukocyte Esterase MODERATE (NEGATIVE) H 07/28/17 17:50 Urine RBC 0-2 /hpf (0-5) 07/28/17 17:50 Urine WBC 50-100 /hpf (0-5) H 07/28/17 17:50 Ur Epithelial Cells OCCASIONAL /lpf (FEW) 07/28/17 17:50 Urine Bacteria MANY /hpf (NONE SEEN) H 07/28/17 17:50 - Physical Exam Vitals and I&O: Vital Signs Temp 98.3 F 07/30/17 07:37 Pulse 73 07/30/17 07:37 Resp 17 07/30/17 07:37 BP 139/66 07/30/17 07:37 Pulse Ox 92 07/30/17 07:37 Intake & Output 07/29/17 07/30/17 07/30/17 18:59 06:59 18:59 Intake Total 1000 950 Output Total 2250 Balance 1000 -1300 Weight (lbs) 67.313 kg Intake: Intake, IV Amount 1000 350 D5-0.45NS 1,000 ml @ 75 1000 mls/hr IV .[id number] [facility] Rx #:[id number] Piperacillin Sodium/ 100 Tazobact 3.375 gm In Dextrose 5% 50 ml @ 100 mls/hr IV Q6H [facility] Rx#: [id number] Vancomycin HCl 1.25 gm In 250 Sodium Chloride 0.9% 250 ml @ 165 mls/hr IV Q24HR @0900 [facility] Rx#:[id number] Oral 600 Output: Urine 2250 Other: # Bowel Movements 2 Weight Source Bedscale Active Medications: Current Medications Acetaminophen/Hydrocodone Bitart ([place] 5mg/325mg) 1 tab PO Q6H PRN PRN Reason: Pain (Severe) Last Admin: 07/29/17 21:33 Dose: 1 tab Dextrose/Sodium Chloride (D5-0.45ns) 1,000 mls @ 75 mls/hr IV .[id number] [facility] Stop: 09/27/17 00:29 Last Admin: 07/29/17 17:13 Dose: 75 mls/hr Piperacillin Sod/Tazobactam (Sod 3.375 gm/ Dextrose) 50 mls @ 100 mls/hr IV Q6H [facility] Stop: 09/27/17 17:59 Last Admin: 07/30/17 06:08 Dose: 100 mls/hr Vancomycin HCl 1.25 gm/ Sodium (Chloride) 250 mls @ 165 mls/hr IV Q24HR@0900 [facility] Stop: 09/27/17 09:59 Last Infusion: 07/29/17 19:54 Dose: Infused Insulin Aspart (Novolog Insulin Sliding Scale) 0 units SUBQ ACHS [facility]; Protocol Stop: 09/27/17 11:29 Last Admin: 07/30/17 08:31 Dose: Not Given Lisinopril (Zestril) 40 mg PO DAILY [facility] Stop: 09/27/17 09:59 Last Admin: 07/30/17 09:03 Dose: Not Given Metformin HCl (Glucophage) 500 mg PO BID [facility] Stop: 09/27/17 17:59 Last Admin: 07/30/17 09:04 Dose: Not Given Miscellaneous (Vancomycin Iv Per Pharmacy) 1 ea PRN PRN PRN Reason: PROTOCOL Stop: 09/27/17 08:24 Miscellaneous (Zosyn Iv Per Pharmacy) 1 ea PRN PRN PRN Reason: PROTOCOL Stop: 09/27/17 08:25 Morphine Sulfate (Morphine) 2 mg IVP Q4HR PRN PRN Reason: Pain (Moderate) Stop: 09/27/17 00:22 Last Admin: 07/30/17 03:40 Dose: 2 mg Ondansetron HCl (Zofran) 4 mg IV Q6H PRN PRN Reason: Nausea / Vomiting Stop: 09/27/17 23:00 Last Admin: 07/30/17 00:58 Dose: 4 mg Simvastatin (Zocor) 20 mg PO HS [facility]; Protocol Stop: 09/27/17 20:59 Last Admin: 07/29/17 21:35 Dose: 20 mg General: no acute distress, well developed, well nourished HEENT: atraumatic, normocephalic, PERRLA, EOMI Neck: supple, no thyromegaly Cardiovascular: S1S2, regular Lungs: clear to auscultation bilaterally, clear to percussion Abdomen: soft, other (seton drain in right perirectal area), no tender, no distended Extremities: no cyanosis, no clubbing, no edema Neurological: awake, alert, oriented Skin: intact Infectious Disease Assmt/Plan - Problem List Patient Problems: All Active Problems Jeanette-rectal abscess (Acute) K61.1 Status post incision and drainage (Acute) Z98.890 - Assessment Assessment: 1. Right perirectal abscess. 2. DM2. - Plan Plan: Conitnue vanco IV and Zosyn. Nutritional Asmnt/Malnutr-PDOC - Dietary Evaluation Malnutrition Findings (Please click <Entered> for more info): Nutritional Asmnt/Malnutrition Start: 07/29/17 16: 58 Text: Status: Complete Freq: Protocol: Document 07/29/17 16:58 LCHENG (Rec: 07/29/17 17:16 [email or web address] [email or web address]) Nutritional Asmnt/Malnutrition Patient General Information Nutritional Screening High Risk Consult Diagnosis abcess, cellulitis, sepsis Pertinent Medical Hx/Surgical Hx HTN, DM, hydlipidemiamia, PUD/ GERD, cholecystectomy, hernia Subjective Information Consult received for DM. Pt seen lying in bed at time of visit, complain of bad headache, not a good time for nutrition education. Pt reported no appetite today. Pt did not have breakfast and lunch per RN. Offered pt alternative food when she is ready to eat. Pt verbalized understanding. Current Diet Order/ Nutrition Support CCHO-60gm. Pertinent Medications D5-0.45ns, novolog, piperacillin, vancomycin Pertinent Labs 07/29 glucose 193, POC 230-243 07/28 glucose 290 Nutritional Hx/Data Height 1.6 m Height (Calculated Centimeters) 160.0 Current Weight (lbs) 68.039 kg Weight (Calculated Kilograms) 68.0 Weight (Calculated Grams) 81664.9 [place] Body Weight 115 Body Mass Index (BMI) 26.5 Weight Status Overweight GI Symptoms GI Symptoms None Last BM not indicated Difficult in: None Skin Integrity/Comment: jeanette rectal abscess Current %PO Negligible < 25% Estimated Nutritional Goals BEE in Kcals: Adj wt of IBW Calories/Kcals/Kg 25-30 Kcals Calculated 9474-1156 Protein: Adj wt of IBW Protein g/k-1.2 Protein Calculated 56-67 Fluid: ml 1400-1680ml (1ml/kcal) Nutritional Problem 1. Problem Problem altered nutrition related labs Etiology hx of DM Signs/Symptoms: glucose 193-290, POC 230-243 Malnutrition Alert Is there a minimum of two criteria No selected? Query Text:Check all the applicable criteria. A minimum of two criteria are recommended for diagnosis of either severe or non-severe malnutrition. Malnutrition Related to Morbid Obesity Malnutrition related to morbid obesity No Intervention/Recommendation Comments 1. Continue with [facility] [place] diet as ordered. Will provide nutrition education next time when pt feels better. 2. Monitor PO intake, wt, labs and skin integrity 3. F/U as high risk in 2-3 days, 07/31-08/01 Expected Outcomes/Goals Expected Outcomes/Goals 1. PO intake to meet at least 75% of nutritional needs. 2. Wt stability, skin integrity to improve, labs to approach WNL.
[2017-07-30] MEDS: D5-0.45NS 1,000 ML IV SCH (10:18)
--- NOTE | 2017-07-30 11:31 | General Progress Note ---
Subjective - Review of Systems Events since last encounter: s/p I&D of the right brett-rectal abscess patient is awake no fever c/o rectal pain Objective - Results Result Diagrams: 07/29/17 05:55 07/29/17 05:55 Recent Labs: Laboratory Last Values WBC 9.4 Th/cmm (4.8-10.8) 07/29/17 05:55 RBC 3.73 Mil/cmm (3.80-5.20) L 07/29/17 05:55 Hgb 11.6 gm/dL (12-16) L 07/29/17 05:55 Hct 34.2 % (41.0-60) L 07/29/17 05:55 MCV 91.8 fl (81-100) 07/29/17 05:55 MCH 31.0 pg (27.0-31.0) 07/29/17 05:55 MCHC Differential 33.7 pg (28.0-36.0) 07/29/17 05:55 RDW 12.5 % (11.5-20.0) 07/29/17 05:55 Plt Count 229 Th/cmm (150-400) 07/29/17 05:55 MPV 8.3 fl 07/29/17 05:55 Neutrophils % 69.0 % (40.0-80.0) 07/29/17 05:55 Lymphocytes % 16.2 % (20.0-50.0) L 07/29/17 05:55 Monocytes % 7.4 % (2.0-10.0) 07/29/17 05:55 Eosinophils % 6.9 % (0.0-5.0) H 07/29/17 05:55 Basophils % 0.5 % (0.0-2.0) 07/29/17 05:55 PT 8.9 SECONDS (9.5-11.5) L 07/28/17 17:00 INR 0.87 (0.5-1.4) 07/28/17 17:00 PTT (Actin FS) 21.9 SECONDS (26.0-38.0) L 07/28/17 17:00 Sodium 138 mEq/L (136-145) 07/29/17 05:55 Potassium 4.2 mEq/L (3.5-5.1) 07/29/17 05:55 Chloride 104 mEq/L (98-107) 07/29/17 05:55 Carbon Dioxide 28.7 mEq/L (21.0-31.0) 07/29/17 05:55 Anion Gap 9.5 (7.0-16.0) 07/29/17 05:55 BUN 11 mg/dL (7-25) 07/29/17 05:55 Creatinine 0.7 mg/dL (0.6-1.2) 07/29/17 05:55 Est GFR ( Amer) TNP 07/29/17 05:55 Est GFR (Non-Af Amer) TNP 07/29/17 05:55 BUN/Creatinine Ratio 15.7 07/29/17 05:55 Glucose 193 mg/dL (70-105) H 07/29/17 05:55 POC Glucose 288 MG/DL (70 - 105) H 07/30/17 09:10 Hemoglobin A1c % 9.1 % (4.0-6.0) H 07/28/17 17:00 Whole Bld Lactic Acid 1.06 mmol/L (0.60-1.99) 07/28/17 17:00 Calcium 9.1 mg/dL (8.6-10.3) 07/29/17 05:55 Total Bilirubin 0.6 mg/dL (0.3-1.0) 07/29/17 05:55 AST 34 U/L (13-39) 07/29/17 05:55 ALT 96 U/L (7-52) H 07/29/17 05:55 Alkaline Phosphatase 145 U/L (34-104) H 07/29/17 05:55 Creatine Kinase 64 U/L (30-223) 07/28/17 17:00 Troponin I 0.01 ng/mL (0.01-0.05) 07/28/17 17:00 Total Protein 6.4 gm/dL (6.0-8.3) 07/29/17 05:55 Albumin 3.6 gm/dL (3.7-5.3) L 07/29/17 05:55 Globulin 2.8 gm/dL 07/29/17 05:55 Albumin/Globulin Ratio 1.3 (1.0-1.8) 07/29/17 05:55 Urine Source MIDSTREAM 07/28/17 17:50 Urine Color DARK ORANGE 07/28/17 17:50 Urine Clarity SLIGHT CLOUDY (CLEAR) H 07/28/17 17:50 Urine pH 5.0 (4.6 - 8.0) 07/28/17 17:50 Ur Specific [place] < 1.005 (1.005-1.030) L 07/28/17 17:50 Urine Protein 30 mg/dL (NEGATIVE) H 07/28/17 17:50 Urine Glucose (UA) 250 mg/dL (NEGATIVE) H 07/28/17 17:50 Urine Ketones NEGATIVE mg/dL (NEGATIVE) 07/28/17 17:50 Urine Blood NEGATIVE (NEGATIVE) 07/28/17 17:50 Urine Nitrate POSITIVE (NEGATIVE) H 07/28/17 17:50 Urine Bilirubin NEGATIVE (NEGATIVE) 07/28/17 17:50 Urine Urobilinogen 2.0 E.U./dL (0.2 - 1.0) 07/28/17 17:50 Ur Leukocyte Esterase MODERATE (NEGATIVE) H 07/28/17 17:50 Urine RBC 0-2 /hpf (0-5) 07/28/17 17:50 Urine WBC 50-100 /hpf (0-5) H 07/28/17 17:50 Ur Epithelial Cells OCCASIONAL /lpf (FEW) 07/28/17 17:50 Urine Bacteria MANY /hpf (NONE SEEN) H 07/28/17 17:50 - Physical Exam Vitals and I&O: Vital Signs Temp 98.3 F 07/30/17 07:37 Pulse 73 07/30/17 07:37 Resp 17 07/30/17 07:37 BP 139/66 07/30/17 07:37 Pulse Ox 92 07/30/17 07:37 Intake & Output 07/29/17 07/30/17 07/30/17 18:59 06:59 18:59 Intake Total 1000 1950 Output Total 2250 Balance 1000 -300 Weight (lbs) 67.313 kg Intake: Intake, IV Amount 1000 1350 D5-0.45NS 1,000 ml @ 75 1000 1000 mls/hr IV .[id number] [facility] Rx #:[id number] Piperacillin Sodium/ 100 Tazobact 3.375 gm In Dextrose 5% 50 ml @ 100 mls/hr IV Q6H [facility] Rx#: [id number] Vancomycin HCl 1.25 gm In 250 Sodium Chloride 0.9% 250 ml @ 165 mls/hr IV Q24HR @0900 [facility] Rx#:[id number] Oral 600 Output: Urine 2250 Other: # Bowel Movements 2 Weight Source Bedscale Active Medications: Current Medications Acetaminophen/Hydrocodone Bitart ([place] 5mg/325mg) 1 tab PO Q6H PRN PRN Reason: Pain (Severe) Last Admin: 07/29/17 21:33 Dose: 1 tab Dextrose/Sodium Chloride (D5-0.45ns) 1,000 mls @ 75 mls/hr IV .[id number] [facility] Stop: 09/27/17 00:29 Last Admin: 07/30/17 10:18 Dose: 75 mls/hr Piperacillin Sod/Tazobactam (Sod 3.375 gm/ Dextrose) 50 mls @ 100 mls/hr IV Q6H [facility] Stop: 09/27/17 17:59 Last Admin: 07/30/17 06:08 Dose: 100 mls/hr Vancomycin HCl 1.25 gm/ Sodium (Chloride) 250 mls @ 165 mls/hr IV Q24HR@0900 [facility] Stop: 09/27/17 09:59 Last Admin: 07/30/17 10:18 Dose: 165 mls/hr Insulin Aspart (Novolog Insulin Sliding Scale) 0 units SUBQ ACHS [facility]; Protocol Stop: 09/27/17 11:29 Last Admin: 07/30/17 08:31 Dose: Not Given Lisinopril (Zestril) 40 mg PO DAILY [facility] Stop: 09/27/17 09:59 Last Admin: 07/30/17 09:03 Dose: Not Given Metformin HCl (Glucophage) 500 mg PO BID [facility] Stop: 09/27/17 17:59 Last Admin: 07/30/17 09:04 Dose: Not Given Miscellaneous (Vancomycin Iv Per Pharmacy) 1 ea MC PRN PRN PRN Reason: PROTOCOL Stop: 09/27/17 08:24 Miscellaneous (Zosyn Iv Per Pharmacy) 1 ea MC PRN PRN PRN Reason: PROTOCOL Stop: 09/27/17 08:25 Morphine Sulfate (Morphine) 2 mg IVP Q4HR PRN PRN Reason: Pain (Moderate) Stop: 09/27/17 00:22 Last Admin: 07/30/17 03:40 Dose: 2 mg Ondansetron HCl (Zofran) 4 mg IV Q6H PRN PRN Reason: Nausea / Vomiting Stop: 09/27/17 23:00 Last Admin: 07/30/17 00:58 Dose: 4 mg Simvastatin (Zocor) 20 mg PO HS [facility]; Protocol Stop: 09/27/17 20:59 Last Admin: 07/29/17 21:35 Dose: 20 mg General: Alert HEENT: PERRLA Cardiovascular: Regular rate, Normal S1, Normal S2 Abdomen: Bowel sounds Assessment/Plan - Problem List Patient Problems: All Active Problems Brett-rectal abscess (Acute) K61.1 Status post incision and drainage (Acute) Z98.890 - Plan Plan: monitor vitals diet labs pain management antibotics cmp Nutritional Asmnt/Malnutr-PDOC - Dietary Evaluation Malnutrition Findings (Please click <Entered> for more info): Nutritional Asmnt/Malnutrition Start: 07/29/17 16: 58 Text: Status: Complete Freq: Protocol: Document 07/29/17 16:58 LCHENG (Rec: 07/29/17 17:16 LCHENG [id number]) Nutritional Asmnt/Malnutrition Patient General Information Nutritional Screening High Risk Consult Diagnosis abcess, cellulitis, sepsis Pertinent Medical Hx/Surgical Hx HTN, DM, hydlipidemiamia, PUD/ GERD, cholecystectomy, hernia Subjective Information Consult received for DM. Pt seen lying in bed at time of visit, complain of bad headache, not a good time for nutrition education. Pt reported no appetite today. Pt did not have breakfast and lunch per RN. Offered pt alternative food when she is ready to eat. Pt verbalized understanding. Current Diet Order/ [facility] Pertinent Medications D5-0.45ns, novolog, piperacillin, vancomycin Pertinent Labs 07/29 glucose 193, POC 230-243 07/28 glucose 290 Nutritional Hx/Data Height 1.6 m Height (Calculated Centimeters) 160.0 Current Weight (lbs) 68.039 kg Weight (Calculated Kilograms) 68.0 Weight (Calculated Grams) 50006.9 [place] Body Weight 115 Body Mass Index (BMI) 26.5 Weight Status Overweight GI Symptoms GI Symptoms None Last BM not indicated Difficult in: None Skin Integrity/Comment: brett rectal abscess Current %PO Negligible < 25% Estimated Nutritional Goals BEE in Kcals: Adj wt of IBW Calories/Kcals/Kg 25-30 Kcals Calculated 0896-6233 Protein: Adj wt of IBW Protein g/k-1.2 Protein Calculated 56-67 Fluid: ml 1400-1680ml (1ml/kcal) Nutritional Problem 1. Problem Problem altered nutrition related labs Etiology hx of DM Signs/Symptoms: glucose 193-290, POC 230-243 Malnutrition Alert Is there a minimum of two criteria No selected? Query Text:Check all the applicable criteria. A minimum of two criteria are recommended for diagnosis of either severe or non-severe malnutrition. Malnutrition Related to Morbid Obesity Malnutrition related to morbid obesity No Intervention/Recommendation Comments 1. Continue with [facility] diet as ordered. Will provide nutrition education next time when pt feels better. 2. Monitor PO intake, wt, labs and skin integrity 3. F/U as high risk in 2-3 days, 07/31-08/01 Expected Outcomes/Goals Expected Outcomes/Goals 1. PO intake to meet at least 75% of nutritional needs. 2. Wt stability, skin integrity to improve, labs to approach WNL.
[2017-07-30] MEDS: Hydrocodone/APAP 5mg/325mg Tab PO PRN ×2 (12:17→22:28)
[2017-07-31] MEDS: D5-0.45NS 1,000 ML IV SCH ×3 (03:00→21:20)
[2017-07-31 06:32] LABS: % BASOPHILS 1.1 % (0.0-2.0); % LYMPHOCYTES 16.1 % (20.0-50.0); % MONOCYTES 6.6 % (2.0-10.0); % NEUTROPHILS 73.2 % (40.0-80.0); BASOPHILE ABSOLUTE 0.1 Th/cumm (0-0.2); EOSINOPHILE ABSOLUTE 0.3 Th/cmm (0.1-0.4); HEMATOCRIT 33.8 % (41.0-60); HEMOGLOBIN 11.3 gm/dL (12-16); LYMPHOCYTE ABSOLUTE 1.6 Th/cmm (1.5-3.0); MEAN CELL VOLUME 92.2 fl (81-100); MEAN CORPUSCULAR HEMOGLOBIN 30.7 pg (27.0-31.0); MEAN CORPUSCULAR HGB CONC 33.3 pg (28.0-36.0); MEAN PLATELET VOLUME 8.5 fl; MONOCYTE ABSOLUTE 0.7 Th/cmm (0.3-1.0); NEUTROPHILE ABSOLUTE 7.2 Th/cmm (1.8-8.0); PLATELET COUNT 238 Th/cmm (150-400); RED BLOOD COUNT 3.67 Mil/cmm (3.80-5.20); RED CELL DISTRIBUTION WIDTH 12.4 % (11.5-20.0); WHITE BLOOD COUNT 9.9 Th/cmm (4.8-10.8)
[2017-07-31 06:47] LABS: ALB/GLOB RATIO 1.2 (1.0-1.8); ALBUMIN 3.1 gm/dL (3.7-5.3); ALKALINE PHOSPHATASE 129 U/L (34-104); ANION GAP 10.5 (7.0-16.0); BILIRUBIN,TOTAL 0.4 mg/dL (0.3-1.0); BUN - UREA NITROGEN 17 mg/dL (7-25); CALCIUM SERUM 8.3 mg/dL (8.6-10.3); CARBON DIOXIDE 24.3 mEq/L (21.0-31.0); CHLORIDE 105 mEq/L (98-107); CREATININE - SERUM 2.1 mg/dL (0.6-1.2); GLUCOSE 238 mg/dL (70-105); POTASSIUM SERUM 3.8 mEq/L (3.5-5.1); SGOT 17 U/L (13-39); SGPT/ALT 49 U/L (7-52); SODIUM SERUM 136 mEq/L (136-145); TOTAL PROTEIN,SERUM 5.6 gm/dL (6.0-8.3)
[2017-07-31] MEDS: Hydrocodone/APAP 5mg/325mg Tab PO PRN ×3 (06:52→21:19)
[2017-07-31] MEDS: INSULIN ASPART SLIDING SCALE 100 UNITS/ML UNIT SUBQ SCH ×4 (07:40→21:07)
--- NOTE | 2017-07-31 11:43 | General Progress Note ---
Subjective - Review of Systems Service Date: 07/31/17 Events since last encounter: june DC with antibiotics sitz bath bid to my office 2 weeks Objective - Results Result Diagrams: 07/31/17 05:50 07/31/17 05:50 Recent Labs: Laboratory Last Values WBC 9.9 Th/cmm (4.8-10.8) 07/31/17 05:50 RBC 3.67 Mil/cmm (3.80-5.20) L 07/31/17 05:50 Hgb 11.3 gm/dL (12-16) L 07/31/17 05:50 Hct 33.8 % (41.0-60) L 07/31/17 05:50 MCV 92.2 fl (81-100) 07/31/17 05:50 MCH 30.7 pg (27.0-31.0) 07/31/17 05:50 MCHC Differential 33.3 pg (28.0-36.0) 07/31/17 05:50 RDW 12.4 % (11.5-20.0) 07/31/17 05:50 Plt Count 238 Th/cmm (150-400) 07/31/17 05:50 MPV 8.5 fl 07/31/17 05:50 Neutrophils % 73.2 % (40.0-80.0) 07/31/17 05:50 Lymphocytes % 16.1 % (20.0-50.0) L 07/31/17 05:50 Monocytes % 6.6 % (2.0-10.0) 07/31/17 05:50 Eosinophils % 3.0 % (0.0-5.0) 07/31/17 05:50 Basophils % 1.1 % (0.0-2.0) 07/31/17 05:50 PT 8.9 SECONDS (9.5-11.5) L 07/28/17 17:00 INR 0.87 (0.5-1.4) 07/28/17 17:00 PTT (Actin FS) 21.9 SECONDS (26.0-38.0) L 07/28/17 17:00 Sodium 136 mEq/L (136-145) 07/31/17 05:50 Potassium 3.8 mEq/L (3.5-5.1) 07/31/17 05:50 Chloride 105 mEq/L (98-107) 07/31/17 05:50 Carbon Dioxide 24.3 mEq/L (21.0-31.0) 07/31/17 05:50 Anion Gap 10.5 (7.0-16.0) 07/31/17 05:50 BUN 17 mg/dL (7-25) 07/31/17 05:50 Creatinine 2.1 mg/dL (0.6-1.2) H 07/31/17 05:50 Est GFR ( Amer) TNP 07/31/17 05:50 Est GFR (Non-Af Amer) TNP 07/31/17 05:50 BUN/Creatinine Ratio 8.1 07/31/17 05:50 Glucose 238 mg/dL (70-105) H 07/31/17 05:50 POC Glucose 201 MG/DL (70 - 105) H 07/31/17 06:14 Hemoglobin A1c % 9.1 % (4.0-6.0) H 07/28/17 17:00 Whole Bld Lactic Acid 1.06 mmol/L (0.60-1.99) 07/28/17 17:00 Calcium 8.3 mg/dL (8.6-10.3) L 07/31/17 05:50 Total Bilirubin 0.4 mg/dL (0.3-1.0) 07/31/17 05:50 AST 17 U/L (13-39) 07/31/17 05:50 ALT 49 U/L (7-52) 07/31/17 05:50 Alkaline Phosphatase 129 U/L (34-104) H 07/31/17 05:50 Creatine Kinase 64 U/L (30-223) 07/28/17 17:00 Troponin I 0.01 ng/mL (0.01-0.05) 07/28/17 17:00 Total Protein 5.6 gm/dL (6.0-8.3) L 07/31/17 05:50 Albumin 3.1 gm/dL (3.7-5.3) L 07/31/17 05:50 Globulin 2.5 gm/dL 07/31/17 05:50 Albumin/Globulin Ratio 1.2 (1.0-1.8) 07/31/17 05:50 Urine Source MIDSTREAM 07/28/17 17:50 Urine Color DARK ORANGE 07/28/17 17:50 Urine Clarity SLIGHT CLOUDY (CLEAR) H 07/28/17 17:50 Urine pH 5.0 (4.6 - 8.0) 07/28/17 17:50 Ur Specific [place] < 1.005 (1.005-1.030) L 07/28/17 17:50 Urine Protein 30 mg/dL (NEGATIVE) H 07/28/17 17:50 Urine Glucose (UA) 250 mg/dL (NEGATIVE) H 07/28/17 17:50 Urine Ketones NEGATIVE mg/dL (NEGATIVE) 07/28/17 17:50 Urine Blood NEGATIVE (NEGATIVE) 07/28/17 17:50 Urine Nitrate POSITIVE (NEGATIVE) H 07/28/17 17:50 Urine Bilirubin NEGATIVE (NEGATIVE) 07/28/17 17:50 Urine Urobilinogen 2.0 E.U./dL (0.2 - 1.0) 07/28/17 17:50 Ur Leukocyte Esterase MODERATE (NEGATIVE) H 07/28/17 17:50 Urine RBC 0-2 /hpf (0-5) 07/28/17 17:50 Urine WBC 50-100 /hpf (0-5) H 07/28/17 17:50 Ur Epithelial Cells OCCASIONAL /lpf (FEW) 07/28/17 17:50 Urine Bacteria MANY /hpf (NONE SEEN) H 07/28/17 17:50 Vancomycin Trough 17.7 ug/mL (5-10) H 07/31/17 08:00 - Physical Exam Vitals and I&O: Vital Signs Temp 96.5 F 07/31/17 11:38 Pulse 68 07/31/17 11:38 Resp 18 07/31/17 11:38 BP 148/50 07/31/17 11:38 Pulse Ox 99 07/31/17 11:38 Intake & Output 07/30/17 07/31/17 07/31/17 18:59 06:59 18:59 Intake Total 650 1350 Output Total 400 500 Balance 250 850 Weight (lbs) 67.495 kg 67.495 kg Intake: Intake, IV Amount 100 1050 D5-0.45NS 1,000 ml @ 75 1000 mls/hr IV .[id number] [facility] Rx #:[id number] Piperacillin Sodium/ 100 50 Tazobact 3.375 gm In Dextrose 5% 50 ml @ 100 mls/hr IV Q6H [facility] Rx#: [id number] Oral 550 300 Output: Urine 400 500 Other: # Bowel Movements 0 Stool Characteristics Soft Soft Liquid Liquid Weight Source Bedscale Bedscale Active Medications: Current Medications Acetaminophen/Hydrocodone Bitart ([place] 5mg/325mg) 1 tab PO Q6H PRN PRN Reason: Pain (Severe) Last Admin: 07/31/17 06:52 Dose: 1 tab Dextrose/Sodium Chloride (D5-0.45ns) 1,000 mls @ 75 mls/hr IV .[id number] [facility] Stop: 09/27/17 00:29 Last Admin: 07/31/17 03:00 Dose: 75 mls/hr Vancomycin HCl 1 gm/ Sodium (Chloride) 250 mls @ 165 mls/hr IV Q36H [facility] Stop: 09/29/17 20:59 Piperacillin Sod/Tazobactam (Sod 2.25 gm/ Sodium Chloride) 50 mls @ 100 mls/hr IV Q8HR [facility] Stop: 09/29/17 12:59 Insulin Aspart (Novolog Insulin Sliding Scale) 0 units SUBQ ACHS [facility]; Protocol Stop: 09/27/17 11:29 Last Admin: 07/31/17 07:40 Dose: 4 units Lisinopril (Zestril) 40 mg PO DAILY [facility] Stop: 09/27/17 09:59 Last Admin: 07/31/17 08:30 Dose: 40 mg Metformin HCl (Glucophage) 500 mg PO BID [facility] Stop: 09/27/17 17:59 Last Admin: 07/31/17 08:30 Dose: 500 mg Miscellaneous (Vancomycin Iv Per Pharmacy) 1 ea MC PRN PRN PRN Reason: PROTOCOL Stop: 09/27/17 08:24 Miscellaneous (Zosyn Iv Per Pharmacy) 1 ea MC PRN PRN PRN Reason: PROTOCOL Stop: 09/27/17 08:25 Morphine Sulfate (Morphine) 2 mg IVP Q4HR PRN PRN Reason: Pain (Moderate) Stop: 09/27/17 00:22 Last Admin: 07/30/17 03:40 Dose: 2 mg Ondansetron HCl (Zofran) 4 mg IV Q6H PRN PRN Reason: Nausea / Vomiting Stop: 09/27/17 23:00 Last Admin: 07/30/17 00:58 Dose: 4 mg Simvastatin (Zocor) 20 mg PO HS [facility]; Protocol Stop: 09/27/17 20:59 Last Admin: 07/30/17 21:00 Dose: 20 mg Temazepam (Restoril) 15 mg PO HS PRN; Protocol PRN Reason: Insomnia Stop: 09/28/17 16:29 Last Admin: 07/30/17 22:47 Dose: 15 mg General: Alert HEENT: PERRLA Cardiovascular: Regular rate, Normal S1, Normal S2 Abdomen: Bowel sounds Assessment/Plan - Problem List Patient Problems: All Active Problems Jeanette-rectal abscess (Acute) K61.1 Status post incision and drainage (Acute) Z98.890 Nutritional Asmnt/Malnutr-PDOC - Dietary Evaluation Malnutrition Findings (Please click <Entered> for more info): Nutritional Asmnt/Malnutrition Start: 07/29/17 16: 58 Text: Status: Complete Freq: Protocol: Document 07/29/17 16:58 LCHENG (Rec: 07/29/17 17:16 LCHENG [email or web address]) Nutritional Asmnt/Malnutrition Patient General Information Nutritional Screening High Risk Consult Diagnosis abcess, cellulitis, sepsis Pertinent Medical Hx/Surgical Hx HTN, DM, hydlipidemiamia, PUD/ GERD, cholecystectomy, hernia Subjective Information Consult received for DM. Pt seen lying in bed at time of visit, complain of bad headache, not a good time for nutrition education. Pt reported no appetite today. Pt did not have breakfast and lunch per RN. Offered pt alternative food when she is ready to eat. Pt verbalized understanding. [facility] Pertinent Medications D5-0.45ns, novolog, piperacillin, vancomycin Pertinent Labs 07/29 glucose 193, POC 230-243 07/28 glucose 290 Nutritional Hx/Data Height 1.6 m Height (Calculated Centimeters) 160.0 Current Weight (lbs) 68.039 kg Weight (Calculated Kilograms) 68.0 Weight (Calculated Grams) 96715.9 [place] Body Weight 115 Body Mass Index (BMI) 26.5 Weight Status Overweight GI Symptoms GI Symptoms None Last BM not indicated Difficult in: None Skin Integrity/Comment: jeanette rectal abscess Current %PO Negligible < 25% Estimated Nutritional Goals BEE in Kcals: Adj wt of IBW Calories/Kcals/Kg 25-30 Kcals Calculated 0760-7830 Protein: Adj wt of IBW Protein g/k-1.2 Protein Calculated 56-67 Fluid: ml 1400-1680ml (1ml/kcal) Nutritional Problem 1. Problem Problem altered nutrition related labs Etiology hx of DM Signs/Symptoms: glucose 193-290, POC 230-243 Malnutrition Alert Is there a minimum of two criteria No selected? Query Text:Check all the applicable criteria. A minimum of two criteria are recommended for diagnosis of either severe or non-severe malnutrition. Malnutrition Related to Morbid Obesity Malnutrition related to morbid obesity No Intervention/Recommendation Comments 1. Continue with [facility] diet as ordered. Will provide nutrition education next time when pt feels better. 2. Monitor PO intake, wt, labs and skin integrity 3. F/U as high risk in 2-3 days, 07/31-08/01 Expected Outcomes/Goals Expected Outcomes/Goals 1. PO intake to meet at least 75% of nutritional needs. 2. Wt stability, skin integrity to improve, labs to approach WNL.
[2017-07-31] MEDS: Piperacillin/Tazobact 2.25 gm in 0.9% NS 50 ML IV SCH ×2 (12:42→20:59)
--- NOTE | 2017-08-01 01:56 | Infectious Disease Prog Note ---
Infectious Disease Subjective - Review of Systems Service Date: 07/31/17 Subjective: doing well/ Infectious Disease Objective - Results Result Diagrams: 07/31/17 05:50 07/31/17 05:50 Recent Labs: Laboratory Last Values WBC 9.9 Th/cmm (4.8-10.8) 07/31/17 05:50 RBC 3.67 Mil/cmm (3.80-5.20) L 07/31/17 05:50 Hgb 11.3 gm/dL (12-16) L 07/31/17 05:50 Hct 33.8 % (41.0-60) L 07/31/17 05:50 MCV 92.2 fl (81-100) 07/31/17 05:50 MCH 30.7 pg (27.0-31.0) 07/31/17 05:50 MCHC Differential 33.3 pg (28.0-36.0) 07/31/17 05:50 RDW 12.4 % (11.5-20.0) 07/31/17 05:50 Plt Count 238 Th/cmm (150-400) 07/31/17 05:50 MPV 8.5 fl 07/31/17 05:50 Neutrophils % 73.2 % (40.0-80.0) 07/31/17 05:50 Lymphocytes % 16.1 % (20.0-50.0) L 07/31/17 05:50 Monocytes % 6.6 % (2.0-10.0) 07/31/17 05:50 Eosinophils % 3.0 % (0.0-5.0) 07/31/17 05:50 Basophils % 1.1 % (0.0-2.0) 07/31/17 05:50 PT 8.9 SECONDS (9.5-11.5) L 07/28/17 17:00 INR 0.87 (0.5-1.4) 07/28/17 17:00 PTT (Actin FS) 21.9 SECONDS (26.0-38.0) L 07/28/17 17:00 Sodium 136 mEq/L (136-145) 07/31/17 05:50 Potassium 3.8 mEq/L (3.5-5.1) 07/31/17 05:50 Chloride 105 mEq/L (98-107) 07/31/17 05:50 Carbon Dioxide 24.3 mEq/L (21.0-31.0) 07/31/17 05:50 Anion Gap 10.5 (7.0-16.0) 07/31/17 05:50 BUN 17 mg/dL (7-25) 07/31/17 05:50 Creatinine 2.1 mg/dL (0.6-1.2) H 07/31/17 05:50 Est GFR ( Amer) TNP 07/31/17 05:50 Est GFR (Non-Af Amer) TNP 07/31/17 05:50 BUN/Creatinine Ratio 8.1 07/31/17 05:50 Glucose 238 mg/dL (70-105) H 07/31/17 05:50 POC Glucose 280 MG/DL (70 - 105) H 07/31/17 17:22 Hemoglobin A1c % 9.1 % (4.0-6.0) H 07/28/17 17:00 Whole Bld Lactic Acid 1.06 mmol/L (0.60-1.99) 07/28/17 17:00 Calcium 8.3 mg/dL (8.6-10.3) L 07/31/17 05:50 Total Bilirubin 0.4 mg/dL (0.3-1.0) 07/31/17 05:50 AST 17 U/L (13-39) 07/31/17 05:50 ALT 49 U/L (7-52) 07/31/17 05:50 Alkaline Phosphatase 129 U/L (34-104) H 07/31/17 05:50 Creatine Kinase 64 U/L (30-223) 07/28/17 17:00 Troponin I 0.01 ng/mL (0.01-0.05) 07/28/17 17:00 Total Protein 5.6 gm/dL (6.0-8.3) L 07/31/17 05:50 Albumin 3.1 gm/dL (3.7-5.3) L 07/31/17 05:50 Globulin 2.5 gm/dL 07/31/17 05:50 Albumin/Globulin Ratio 1.2 (1.0-1.8) 07/31/17 05:50 Urine Source MIDSTREAM 07/28/17 17:50 Urine Color DARK ORANGE 07/28/17 17:50 Urine Clarity SLIGHT CLOUDY (CLEAR) H 07/28/17 17:50 Urine pH 5.0 (4.6 - 8.0) 07/28/17 17:50 Ur Specific [place] < 1.005 (1.005-1.030) L 07/28/17 17:50 Urine Protein 30 mg/dL (NEGATIVE) H 07/28/17 17:50 Urine Glucose (UA) 250 mg/dL (NEGATIVE) H 07/28/17 17:50 Urine Ketones NEGATIVE mg/dL (NEGATIVE) 07/28/17 17:50 Urine Blood NEGATIVE (NEGATIVE) 07/28/17 17:50 Urine Nitrate POSITIVE (NEGATIVE) H 07/28/17 17:50 Urine Bilirubin NEGATIVE (NEGATIVE) 07/28/17 17:50 Urine Urobilinogen 2.0 E.U./dL (0.2 - 1.0) 07/28/17 17:50 Ur Leukocyte Esterase MODERATE (NEGATIVE) H 07/28/17 17:50 Urine RBC 0-2 /hpf (0-5) 07/28/17 17:50 Urine WBC 50-100 /hpf (0-5) H 07/28/17 17:50 Ur Epithelial Cells OCCASIONAL /lpf (FEW) 07/28/17 17:50 Urine Bacteria MANY /hpf (NONE SEEN) H 07/28/17 17:50 Vancomycin Trough 17.7 ug/mL (5-10) H 07/31/17 08:00 - Physical Exam Vitals and I&O: Vital Signs Temp 98.2 F 08/01/17 00:51 Pulse 67 08/01/17 00:51 Resp 18 08/01/17 00:51 BP 112/40 08/01/17 00:51 Pulse Ox 95 08/01/17 00:51 Intake & Output 07/31/17 07/31/17 08/01/17 06:59 18:59 06:59 Intake Total 1350 1650 25 Output Total 500 550 Balance 850 1100 25 Weight (lbs) 67.495 kg 67.495 kg Intake: Intake, IV Amount 1050 1050 25 D5-0.45NS 1,000 ml @ 75 1000 1000 25 mls/hr IV .[id number] [facility] Rx #:[id number] Piperacillin Sodium/ 50 Tazobact 2.25 gm In Sodium Chloride 0.9% 50 ml @ 100 mls/hr IV Q8HR [facility] Rx#:[id number] Piperacillin Sodium/ 50 Tazobact 3.375 gm In Dextrose 5% 50 ml @ 100 mls/hr IV Q6H [facility] Rx#: [id number] Oral 300 600 Output: Urine 500 550 Other: # Bowel Movements 2 Stool Characteristics Soft Soft Liquid Liquid Weight Source Bedscale Bedscale Active Medications: Current Medications Acetaminophen/Hydrocodone Bitart ([place] 5mg/325mg) 1 tab PO Q6H PRN PRN Reason: Pain (Severe) Last Admin: 07/31/17 21:19 Dose: 1 tab Dextrose/Sodium Chloride (D5-0.45ns) 1,000 mls @ 75 mls/hr IV .[id number] [facility] Stop: 09/27/17 00:29 Last Admin: 07/31/17 21:20 Dose: 75 mls/hr Vancomycin HCl 1 gm/ Sodium (Chloride) 250 mls @ 165 mls/hr IV Q36H [facility] Stop: 09/29/17 20:59 Last Admin: 07/31/17 21:00 Dose: 165 mls/hr Piperacillin Sod/Tazobactam (Sod 2.25 gm/ Sodium Chloride) 50 mls @ 100 mls/hr IV Q8HR [facility] Stop: 09/29/17 12:59 Last Admin: 07/31/17 20:59 Dose: 100 mls/hr Insulin Aspart (Novolog Insulin Sliding Scale) 0 units SUBQ ACHS [facility]; Protocol Stop: 09/27/17 11:29 Last Admin: 07/31/17 21:07 Dose: 4 units Lisinopril (Zestril) 40 mg PO DAILY [facility] Stop: 09/27/17 09:59 Last Admin: 07/31/17 08:30 Dose: 40 mg Metformin HCl (Glucophage) 500 mg PO BID [facility] Stop: 09/27/17 17:59 Last Admin: 07/31/17 16:20 Dose: 500 mg Miscellaneous (Vancomycin Iv Per Pharmacy) 1 ea PRN PRN PRN Reason: PROTOCOL Stop: 09/27/17 08:24 Miscellaneous (Zosyn Iv Per Pharmacy) 1 ea PRN PRN PRN Reason: PROTOCOL Stop: 09/27/17 08:25 Morphine Sulfate (Morphine) 2 mg IVP Q4HR PRN PRN Reason: Pain (Moderate) Stop: 09/27/17 00:22 Last Admin: 07/30/17 03:40 Dose: 2 mg Ondansetron HCl (Zofran) 4 mg IV Q6H PRN PRN Reason: Nausea / Vomiting Stop: 09/27/17 23:00 Last Admin: 07/31/17 17:47 Dose: 4 mg Simvastatin (Zocor) 20 mg PO HS [facility]; Protocol Stop: 09/27/17 20:59 Last Admin: 07/31/17 21:01 Dose: 20 mg Temazepam (Restoril) 15 mg PO HS PRN; Protocol PRN Reason: Insomnia Stop: 09/28/17 16:29 Last Admin: 07/31/17 21:19 Dose: 15 mg General: no acute distress, well developed, well nourished HEENT: atraumatic, normocephalic, PERRLA, EOMI Neck: supple, no thyromegaly Cardiovascular: S1S2, regular Lungs: clear to auscultation bilaterally, clear to percussion Abdomen: soft, other (seton drain inthe right perirectal area), no tender, no distended Extremities: no cyanosis, no clubbing, no edema Neurological: awake, alert, oriented Infectious Disease Assmt/Plan - Problem List Patient Problems: All Active Problems Jeanette-rectal abscess (Acute) K61.1 Status post incision and drainage (Acute) Z98.890 - Assessment Assessment: 1. Right perirectal abscess. 2. DM2. 3. UTI E coli - Plan Plan: Conitnue vanco IV and Zosyn. Nutritional Asmnt/Malnutr-PDOC - Dietary Evaluation Malnutrition Findings (Please click <Entered> for more info): Nutritional Asmnt/Malnutrition Start: 07/29/17 16: 58 Text: Status: Complete Freq: Protocol: Document 07/29/17 16:58 DELL (Rec: 07/29/17 17:16 DELL [email or web address]) Nutritional Asmnt/Malnutrition Patient General Information Nutritional Screening High Risk Consult Diagnosis abcess, cellulitis, sepsis Pertinent Medical Hx/Surgical Hx HTN, DM, hydlipidemiamia, PUD/ GERD, cholecystectomy, hernia Subjective Information Consult received for DM. Pt seen lying in bed at time of visit, complain of bad headache, not a good time for nutrition education. Pt reported no appetite today. Pt did not have breakfast and lunch per RN. Offered pt alternative food when she is ready to eat. Pt verbalized understanding. Current Diet Order/ Nutrition Support [facility]-60gm. Pertinent Medications D5-0.45ns, novolog, piperacillin, vancomycin Pertinent Labs 07/29 glucose 193, POC 230-243 07/28 glucose 290 Nutritional Hx/Data Height 1.6 m Height (Calculated Centimeters) 160.0 Current Weight (lbs) 68.039 kg Weight (Calculated Kilograms) 68.0 Weight (Calculated Grams) 46242.9 [place] Body Weight 115 Body Mass Index (BMI) 26.5 Weight Status Overweight GI Symptoms GI Symptoms None Last BM not indicated Difficult in: None Skin Integrity/Comment: jeanette rectal abscess Current %PO Negligible < 25% Estimated Nutritional Goals BEE in Kcals: Adj wt of IBW Calories/Kcals/Kg 25-30 Kcals Calculated 8435-8875 Protein: Adj wt of IBW Protein g/k-1.2 Protein Calculated 56-67 Fluid: ml 1400-1680ml (1ml/kcal) Nutritional Problem 1. Problem Problem altered nutrition related labs Etiology hx of DM Signs/Symptoms: glucose 193-290, POC 230-243 Malnutrition Alert Is there a minimum of two criteria No selected? Query Text:Check all the applicable criteria. A minimum of two criteria are recommended for diagnosis of either severe or non-severe malnutrition. Malnutrition Related to Morbid Obesity Malnutrition related to morbid obesity No Intervention/Recommendation Comments 1. Continue with [facility] diet as ordered. Will provide nutrition education next time when pt feels better. 2. Monitor PO intake, wt, labs and skin integrity 3. F/U as high risk in 2-3 days, 07/31-08/01 Expected Outcomes/Goals Expected Outcomes/Goals 1. PO intake to meet at least 75% of nutritional needs. 2. Wt stability, skin integrity to improve, labs to approach WNL.
[2017-08-01] MEDS: Hydrocodone/APAP 5mg/325mg Tab PO PRN ×2 (04:09→11:43)
[2017-08-01 08:09] LABS: ANION GAP 11.5 (7.0-16.0); BUN - UREA NITROGEN 20 mg/dL (7-25); CALCIUM SERUM 8.1 mg/dL (8.6-10.3); CARBON DIOXIDE 22.1 mEq/L (21.0-31.0); CHLORIDE 106 mEq/L (98-107); GLUCOSE 246 mg/dL (70-105); POTASSIUM SERUM 3.6 mEq/L (3.5-5.1); SODIUM SERUM 136 mEq/L (136-145)
[2017-08-01] MEDS: Morphine Sulfate 4 mg/mL 1mL Syr IVP PRN (08:52)
[2017-08-01] MEDS: INSULIN ASPART SLIDING SCALE 100 UNITS/ML UNIT SUBQ SCH ×2 (08:56→13:06)
--- NOTE | 2017-08-01 11:06 | General Progress Note ---
Subjective - Review of Systems Service Date: 08/01/17 Events since last encounter: to remove iodoform gauze packing and Amaral, then DC hot sitz bath bid continue antibiotics, may shower to my office 2 weeks diet as tolerated Objective - Results Result Diagrams: 07/31/17 05:50 08/01/17 06:50 Recent Labs: Laboratory Last Values WBC 9.9 Th/cmm (4.8-10.8) 07/31/17 05:50 RBC 3.67 Mil/cmm (3.80-5.20) L 07/31/17 05:50 Hgb 11.3 gm/dL (12-16) L 07/31/17 05:50 Hct 33.8 % (41.0-60) L 07/31/17 05:50 MCV 92.2 fl (81-100) 07/31/17 05:50 MCH 30.7 pg (27.0-31.0) 07/31/17 05:50 MCHC Differential 33.3 pg (28.0-36.0) 07/31/17 05:50 RDW 12.4 % (11.5-20.0) 07/31/17 05:50 Plt Count 238 Th/cmm (150-400) 07/31/17 05:50 MPV 8.5 fl 07/31/17 05:50 Neutrophils % 73.2 % (40.0-80.0) 07/31/17 05:50 Lymphocytes % 16.1 % (20.0-50.0) L 07/31/17 05:50 Monocytes % 6.6 % (2.0-10.0) 07/31/17 05:50 Eosinophils % 3.0 % (0.0-5.0) 07/31/17 05:50 Basophils % 1.1 % (0.0-2.0) 07/31/17 05:50 PT 8.9 SECONDS (9.5-11.5) L 07/28/17 17:00 INR 0.87 (0.5-1.4) 07/28/17 17:00 PTT (Actin FS) 21.9 SECONDS (26.0-38.0) L 07/28/17 17:00 Sodium 136 mEq/L (136-145) 08/01/17 06:50 Potassium 3.6 mEq/L (3.5-5.1) 08/01/17 06:50 Chloride 106 mEq/L (98-107) 08/01/17 06:50 Carbon Dioxide 22.1 mEq/L (21.0-31.0) 08/01/17 06:50 Anion Gap 11.5 (7.0-16.0) 08/01/17 06:50 BUN 20 mg/dL (7-25) 08/01/17 06:50 Creatinine 3.0 mg/dL (0.6-1.2) H 08/01/17 06:50 Est GFR ( Amer) TNP 08/01/17 06:50 Est GFR (Non-Af Amer) TNP 08/01/17 06:50 BUN/Creatinine Ratio 6.7 08/01/17 06:50 Glucose 246 mg/dL (70-105) H 08/01/17 06:50 POC Glucose 212 MG/DL (70 - 105) H 08/01/17 07:32 Hemoglobin A1c % 9.1 % (4.0-6.0) H 07/28/17 17:00 Whole Bld Lactic Acid 1.06 mmol/L (0.60-1.99) 07/28/17 17:00 Calcium 8.1 mg/dL (8.6-10.3) L 08/01/17 06:50 Total Bilirubin 0.4 mg/dL (0.3-1.0) 07/31/17 05:50 AST 17 U/L (13-39) 07/31/17 05:50 ALT 49 U/L (7-52) 07/31/17 05:50 Alkaline Phosphatase 129 U/L (34-104) H 07/31/17 05:50 Creatine Kinase 64 U/L (30-223) 07/28/17 17:00 Troponin I 0.01 ng/mL (0.01-0.05) 07/28/17 17:00 Total Protein 5.6 gm/dL (6.0-8.3) L 07/31/17 05:50 Albumin 3.1 gm/dL (3.7-5.3) L 07/31/17 05:50 Globulin 2.5 gm/dL 07/31/17 05:50 Albumin/Globulin Ratio 1.2 (1.0-1.8) 07/31/17 05:50 Urine Source MIDSTREAM 07/28/17 17:50 Urine Color DARK ORANGE 07/28/17 17:50 Urine Clarity SLIGHT CLOUDY (CLEAR) H 07/28/17 17:50 Urine pH 5.0 (4.6 - 8.0) 07/28/17 17:50 Ur Specific [place] < 1.005 (1.005-1.030) L 07/28/17 17:50 Urine Protein 30 mg/dL (NEGATIVE) H 07/28/17 17:50 Urine Glucose (UA) 250 mg/dL (NEGATIVE) H 07/28/17 17:50 Urine Ketones NEGATIVE mg/dL (NEGATIVE) 07/28/17 17:50 Urine Blood NEGATIVE (NEGATIVE) 07/28/17 17:50 Urine Nitrate POSITIVE (NEGATIVE) H 07/28/17 17:50 Urine Bilirubin NEGATIVE (NEGATIVE) 07/28/17 17:50 Urine Urobilinogen 2.0 E.U./dL (0.2 - 1.0) 07/28/17 17:50 Ur Leukocyte Esterase MODERATE (NEGATIVE) H 07/28/17 17:50 Urine RBC 0-2 /hpf (0-5) 07/28/17 17:50 Urine WBC 50-100 /hpf (0-5) H 07/28/17 17:50 Ur Epithelial Cells OCCASIONAL /lpf (FEW) 07/28/17 17:50 Urine Bacteria MANY /hpf (NONE SEEN) H 07/28/17 17:50 Vancomycin Trough 17.7 ug/mL (5-10) H 07/31/17 08:00 Random Vancomycin 23.5 ug/mL (5.0-40.0) 08/01/17 06:50 - Physical Exam Vitals and I&O: Vital Signs Temp 97.8 F 08/01/17 04:00 Pulse 57 08/01/17 08:54 Resp 19 08/01/17 04:00 BP 150/66 08/01/17 08:54 Pulse Ox 95 08/01/17 04:00 Intake & Output 07/31/17 08/01/17 08/01/17 18:59 06:59 18:59 Intake Total 1650 25 Output Total 550 Balance 1100 25 Weight (lbs) 67.495 kg 70.76 kg Intake: Intake, IV Amount 1050 25 D5-0.45NS 1,000 ml @ 75 1000 25 mls/hr IV .[id number] [facility] Rx #:[id number] Piperacillin Sodium/ 50 Tazobact 2.25 gm In Sodium Chloride 0.9% 50 ml @ 100 mls/hr IV Q8HR [facility] Rx#:[id number] Oral 600 Output: Urine 550 Other: # Bowel Movements 2 Stool Characteristics Soft Soft Liquid Liquid Weight Source Bedscale Bedscale Active Medications: Current Medications Acetaminophen/Hydrocodone Bitart (Sesser 5mg/325mg) 1 tab PO Q6H PRN PRN Reason: Pain (Severe) Last Admin: 08/01/17 04:09 Dose: 1 tab Dextrose/Sodium Chloride (D5-0.45ns) 1,000 mls @ 75 mls/hr IV .[id number] [facility] Stop: 09/27/17 00:29 Last Admin: 07/31/17 21:20 Dose: 75 mls/hr Piperacillin Sod/Tazobactam (Sod 2.25 gm/ Sodium Chloride) 50 mls @ 100 mls/hr IV Q8HR [facility] Stop: 09/29/17 12:59 Last Admin: 07/31/17 20:59 Dose: 100 mls/hr Insulin Aspart (Novolog Insulin Sliding Scale) 0 units SUBQ ACHS [facility]; Protocol Stop: 09/27/17 11:29 Last Admin: 08/01/17 08:56 Dose: 4 units Lisinopril (Zestril) 40 mg PO DAILY [facility] Stop: 09/27/17 09:59 Last Admin: 08/01/17 08:54 Dose: 40 mg Metformin HCl (Glucophage) 500 mg PO BID [facility] Stop: 09/27/17 17:59 Last Admin: 08/01/17 08:55 Dose: 500 mg Miscellaneous (Vancomycin Iv Per Pharmacy) 1 ea PRN PRN PRN Reason: PROTOCOL Stop: 09/27/17 08:24 Miscellaneous (Zosyn Iv Per Pharmacy) 1 [facility] PRN PRN PRN Reason: PROTOCOL Stop: 09/27/17 08:25 Morphine Sulfate (Morphine) 2 mg IVP Q4HR PRN PRN Reason: Pain (Moderate) Stop: 09/27/17 00:22 Last Admin: 08/01/17 08:52 Dose: 2 mg Ondansetron HCl (Zofran) 4 mg IV Q6H PRN PRN Reason: Nausea / Vomiting Stop: 09/27/17 23:00 Last Admin: 07/31/17 17:47 Dose: 4 mg Simvastatin (Zocor) 20 mg PO HS GLADIS; Protocol Stop: 09/27/17 20:59 Last Admin: 07/31/17 21:01 Dose: 20 mg Temazepam (Restoril) 15 mg PO HS PRN; Protocol PRN Reason: Insomnia Stop: 09/28/17 16:29 Last Admin: 07/31/17 21:19 Dose: 15 mg General: Alert HEENT: PERRLA Cardiovascular: Regular rate, Normal S1, Normal S2 Abdomen: Bowel sounds Assessment/Plan - Problem List Patient Problems: All Active Problems Jeanette-rectal abscess (Acute) K61.1 Status post incision and drainage (Acute) Z98.890 Nutritional Asmnt/Malnutr-PDOC - Dietary Evaluation Malnutrition Findings (Please click <Entered> for more info): Nutritional Asmnt/Malnutrition Start: 07/29/17 16: 58 Text: Status: Complete Freq: Protocol: Document 07/29/17 16:58 LCHENG (Rec: 07/29/17 17:16 LCHENG [id number]) Nutritional Asmnt/Malnutrition Patient General Information Nutritional Screening High Risk Consult Diagnosis abcess, cellulitis, sepsis Pertinent Medical Hx/Surgical Hx HTN, DM, hydlipidemiamia, PUD/ GERD, cholecystectomy, hernia Subjective Information Consult received for DM. Pt seen lying in bed at time of visit, complain of bad headache, not a good time for nutrition education. Pt reported no appetite today. Pt did not have breakfast and lunch per RN. Offered pt alternative food when she is ready to eat. Pt verbalized understanding. Current Diet [facility]/ [facility] Pertinent Medications D5-0.45ns, novolog, piperacillin, vancomycin Pertinent Labs 07/29 glucose 193, POC 230-243 07/28 glucose 290 Nutritional Hx/Data Height 1.6 m Height (Calculated Centimeters) 160.0 Current Weight (lbs) 68.039 kg Weight (Calculated Kilograms) 68.0 Weight (Calculated Grams) 34202.9 [place] Body Weight 115 Body Mass Index (BMI) 26.5 Weight Status Overweight GI Symptoms GI Symptoms None Last BM not indicated Difficult in: None Skin Integrity/Comment: jeanette rectal abscess Current %PO Negligible < 25% Estimated Nutritional Goals BEE in Kcals: Adj wt of IBW Calories/Kcals/Kg 25-30 Kcals Calculated 1404-5759 Protein: Adj wt of IBW Protein g/k-1.2 Protein Calculated 56-67 Fluid: ml 1400-1680ml (1ml/kcal) Nutritional Problem 1. Problem Problem altered nutrition related labs Etiology hx of DM Signs/Symptoms: glucose 193-290, POC 230-243 Malnutrition Alert Is there a minimum of two criteria No selected? Query Text:Check all the applicable criteria. A minimum of two criteria are recommended for diagnosis of either severe or non-severe malnutrition. Malnutrition Related to Morbid Obesity Malnutrition related to morbid obesity No Intervention/Recommendation Comments 1. Continue with [facility] diet as ordered. Will provide nutrition education next time when pt feels better. 2. Monitor PO intake, wt, labs and skin integrity 3. F/U as high risk in 2-3 days, 07/31-6 Expected Outcomes/Goals Expected Outcomes/Goals 1. PO intake to meet at least 75% of nutritional needs. 2. Wt stability, skin integrity to improve, labs to approach WNL.
[2017-08-01] MEDS: Piperacillin/Tazobact 2.25 gm in 0.9% NS 50 ML IV SCH (11:47)
[2017-08-01] MEDS: D5-0.45NS 1,000 ML IV SCH (11:48)
== END 2017-08-01 16:45 | disposition home or self-care (01) | DRG 853 ==
LOC: ER 16:14 → MSI 18:32
PROVIDERS: ADMIT Internal Medicine; ATTEND Internal Medicine
PROC: 0D9QXZZ Drainage of Anus, External Approach (ICD-10-PCS; principal; 2017-07-30)
PROC: 0DJD8ZZ Inspection of Lower Intestinal Tract, Via Natural or Artificial Opening Endoscopic (ICD-10-PCS; 2017-07-30)
DX: A41.9 Sepsis, unspecified organism (principal); E11.00 Type 2 diabetes mellitus with hyperosmolarity without nonketotic hyperglycemic-hyperosmolar coma (NKHHC); K61.1 Rectal abscess; N39.0 Urinary tract infection, site not specified; I10 Essential (primary) hypertension; E11.9 Type 2 diabetes mellitus without complications; B96.20 Unspecified Escherichia coli [E. coli] as the cause of diseases classified elsewhere; E78.5 Hyperlipidemia, unspecified; K21.9 Gastro-esophageal reflux disease without esophagitis; Z82.49 Family history of ischemic heart disease and other diseases of the circulatory system; Z90.49 Acquired absence of other specified parts of digestive tract; Z91.041 Radiographic dye allergy status; Z91.040 Latex allergy status
CPT/HCPCS: 36415-UA; 80048-TC; 80053-TC; 80202-TC; 81001-TC; 82550-TC; 82948-90; 83036-90; 83605; 84484-TC; 85025-TC; 85610-TC; 85730-TC; 87070-90; 87075-90; 87086-90; 87205-90; 90799; 93005; J0696; J1815; J1885; J2270; J2405; J2543; J2704; J2765; J3370; V2790; Z7610